=== PATIENT | male | born 1950 | race Caucasian/White ===

== ENCOUNTER 2021-10-31 08:06 | Outpatient (CLI) | payer OTHER, SELFPAY | END 2021-10-31 08:07 | disposition home or self-care (01) | PROVIDERS: PCP Family Medicine; Visit Provider Nurse Practitioner Family | DX: I83.012 Varicose veins of right lower extremity with ulcer of calf (principal); L97.212 Non-pressure chronic ulcer of right calf with fat layer exposed; I89.0 Lymphedema, not elsewhere classified; E66.9 Obesity, unspecified | CPT/HCPCS: 11042; 11104; 87070; 87186; 88305; 99213 ==

== ENCOUNTER 2021-11-07 10:37 | Outpatient (CLI) | payer OTHER, SELFPAY | END 2021-11-07 10:38 | disposition home or self-care (01) | LOC: WOUND 10:37 | PROVIDERS: PCP Family Medicine; Visit Provider Nurse Practitioner Family | DX: I87.311 Chronic venous hypertension (idiopathic) with ulcer of right lower extremity (principal); L97.812 Non-pressure chronic ulcer of other part of right lower leg with fat layer exposed | CPT/HCPCS: 11042 ==

== ENCOUNTER 2021-11-14 10:04 | Outpatient (CLI) | payer OTHER, SELFPAY | END 2021-11-14 10:05 | disposition home or self-care (01) | PROVIDERS: PCP Family Medicine; Visit Provider Nurse Practitioner Family | DX: I87.311 Chronic venous hypertension (idiopathic) with ulcer of right lower extremity (principal); L97.812 Non-pressure chronic ulcer of other part of right lower leg with fat layer exposed | CPT/HCPCS: 11042 ==

== ENCOUNTER 2021-11-21 12:46 | Outpatient (CLI) | payer OTHER, SELFPAY | END 2021-11-21 12:47 | disposition home or self-care (01) | LOC: WOUND 12:46 | PROVIDERS: PCP Family Medicine; Visit Provider Nurse Practitioner Family | DX: I87.311 Chronic venous hypertension (idiopathic) with ulcer of right lower extremity (principal); L97.812 Non-pressure chronic ulcer of other part of right lower leg with fat layer exposed; I89.0 Lymphedema, not elsewhere classified | CPT/HCPCS: 11042 ==

== ENCOUNTER 2021-11-28 09:54 | Outpatient (CLI) | payer OTHER, SELFPAY | END 2021-11-28 09:55 | disposition home or self-care (01) | LOC: WOUND 09:54 | PROVIDERS: PCP Family Medicine; Visit Provider Nurse Practitioner Family | DX: I87.311 Chronic venous hypertension (idiopathic) with ulcer of right lower extremity (principal); L97.812 Non-pressure chronic ulcer of other part of right lower leg with fat layer exposed | CPT/HCPCS: 97597 ==

== ENCOUNTER 2021-12-05 09:44 | Outpatient (CLI) | payer OTHER, SELFPAY | END 2021-12-05 09:45 | disposition home or self-care (01) | LOC: WOUND 09:44 | PROVIDERS: PCP Family Medicine; Visit Provider Nurse Practitioner Family | DX: I87.311 Chronic venous hypertension (idiopathic) with ulcer of right lower extremity (principal); L97.812 Non-pressure chronic ulcer of other part of right lower leg with fat layer exposed | CPT/HCPCS: 97597 ==

== ENCOUNTER 2021-12-13 09:50 | Outpatient (CLI) | payer OTHER, SELFPAY | END 2021-12-13 09:51 | disposition home or self-care (01) | LOC: WOUND 09:50 | PROVIDERS: PCP Family Medicine; Visit Provider Nurse Practitioner Family | DX: I83.018 Varicose veins of right lower extremity with ulcer other part of lower leg (principal); L97.812 Non-pressure chronic ulcer of other part of right lower leg with fat layer exposed | CPT/HCPCS: 99212 ==

== ENCOUNTER 2021-12-19 10:39 | Outpatient (CLI) | payer OTHER, SELFPAY | END 2021-12-19 10:40 | disposition home or self-care (01) | LOC: WOUND 10:40 | PROVIDERS: PCP Family Medicine; Visit Provider Nurse Practitioner Family | DX: I87.311 Chronic venous hypertension (idiopathic) with ulcer of right lower extremity (principal); L97.212 Non-pressure chronic ulcer of right calf with fat layer exposed; I89.0 Lymphedema, not elsewhere classified | CPT/HCPCS: 97597 ==

== ENCOUNTER 2021-12-26 08:03 | Outpatient (CLI) | payer OTHER, SELFPAY ==
--- NOTE | 2021-12-26 08:15 | CRLHL7_ITS ---
For Patients: As a result of the Cures Act, medical imaging exams and procedure reports are released immediately into your electronic medical record. You may view this report before your referring provider. If you have questions, please contact your health care provider. HISTORY: Right hurd wound. TECHNIQUE: MRI right lower leg/tibia fibula. COMPARISON: No prior. FINDINGS: There is a soft tissue wound involving the anterior aspect of the right mid lower leg. There is no underlying fluid collection. No osteomyelitis. No deep muscle or fascial plane infection. Subcutaneous varicosities are present. IMPRESSION: 1. Soft tissue wound involving the anterior right lower leg. 2. No associated fluid collection, osteomyelitis or deep soft tissue infection. Dictated by Tuan Frias MD @ 12/26/2021 12:50:44 PM (Electronically Signed)
== END 2021-12-26 08:04 | disposition home or self-care (01) ==
PROVIDERS: PCP Family Medicine; Visit Provider Nurse Practitioner Family
DX: L97.919 Non-pressure chronic ulcer of unspecified part of right lower leg with unspecified severity (principal)
CPT/HCPCS: 73718; 97597; A9575

== ENCOUNTER 2022-01-02 09:45 | Outpatient (CLI) | payer OTHER, SELFPAY | END 2022-01-02 09:46 | disposition home or self-care (01) | LOC: WOUND 09:45 | PROVIDERS: PCP Family Medicine; Visit Provider Nurse Practitioner Family | DX: I87.311 Chronic venous hypertension (idiopathic) with ulcer of right lower extremity (principal); L97.212 Non-pressure chronic ulcer of right calf with fat layer exposed | CPT/HCPCS: 99212 ==

== ENCOUNTER 2022-03-29 16:29 | Outpatient (CLI) | payer OTHER, SELFPAY ==
[2022-03-29 09:49] LABS: Albumin* 4.8 g/dL (3.3-5.0); Chloride* 100 mmol/L (96-114)
[2022-03-29 09:50] LABS: Potassium* 4.1 mmol/L (3.6-5.1); Sodium* 140 mmol/L (135-149)
[2022-03-29 09:52] LABS: Aspartate Amino Transferase* 35 U/L (12-35); Bilirubin Total* 0.7 mg/dL (0.1-1.5); Blood Urea Nitrogen* 20 mg/dL (7-30); Carbon Dioxide* 33 mmol/L (20-32); Cholesterol* 160 mg/dL (90-199); Estimated Glomerular Filt Rate 81 ml/min; Glucose* 99 mg/dL (60-115); Total Protein* 7.2 g/dL (6.0-8.3)
[2022-03-29 09:53] LABS: Alanine Aminotransferase* 36 U/L (4-50); Alkaline Phosphatase* 61 U/L (40-150); Calcium* 9.4 mg/dL (8.4-10.6); HDL Cholesterol* 46 mg/dL (>=40); LDL Cholesterol Calculated 81 mg/dL (<100); Triglycerides* 164 mg/dL (40-149)
[2022-03-29 10:21] LABS: PSA Screen* 0.25 ng/mL (0.10-4.00)
== END 2022-03-29 16:30 | disposition home or self-care (01) ==
PROVIDERS: PCP Family Medicine; Visit Provider Family Medicine
DX: E78.5 Hyperlipidemia, unspecified (principal); M10.9 Gout, unspecified; Z12.5 Encounter for screening for malignant neoplasm of prostate; G62.9 Polyneuropathy, unspecified; R60.9 Edema, unspecified; Z79.899 Other long term (current) drug therapy
CPT/HCPCS: 80053; 80061; 84153

== ENCOUNTER 2022-06-13 09:52 | Outpatient (CLI) | payer OTHER, SELFPAY | END 2022-06-13 09:53 | disposition home or self-care (01) | LOC: INJ CL 09:53 | PROVIDERS: PCP Family Medicine; Visit Provider Family Medicine | DX: M54.16 Radiculopathy, lumbar region (principal); M51.36 Other intervertebral disc degeneration, lumbar region | CPT/HCPCS: 62323; J0702; Q9966 ==

== ENCOUNTER 2022-08-02 08:38 | Outpatient (CLI) | payer OTHER, SELFPAY | END 2022-08-02 08:39 | disposition home or self-care (01) | LOC: NFLDREF 08:40 | PROVIDERS: PCP Family Medicine; Visit Provider Family Medicine | DX: E78.5 Hyperlipidemia, unspecified (principal); Z79.1 Long term (current) use of non-steroidal anti-inflammatories (NSAID); Z79.899 Other long term (current) drug therapy | CPT/HCPCS: 80053 ==

== ENCOUNTER 2023-01-29 07:30 | Outpatient (CLI) | payer OTHER, SELFPAY | END 2023-01-29 07:31 | disposition home or self-care (01) | LOC: NFLDREF 01-31 15:18 | PROVIDERS: PCP Family Medicine; Referring Provider Family Medicine; Visit Provider Family Medicine | DX: E78.5 Hyperlipidemia, unspecified (principal); D64.9 Anemia, unspecified; Z79.1 Long term (current) use of non-steroidal anti-inflammatories (NSAID) | CPT/HCPCS: 80053; 80061 ==

== ENCOUNTER 2023-03-28 07:36 | Outpatient (CLI) | payer OTHER, SELFPAY | END 2023-03-28 07:37 | disposition home or self-care (01) | LOC: NFLDREF 12:05 | PROVIDERS: PCP Family Medicine; Referring Provider Family Medicine; Visit Provider Family Medicine | DX: D64.9 Anemia, unspecified (principal); G62.9 Polyneuropathy, unspecified; E66.9 Obesity, unspecified; R73.9 Hyperglycemia, unspecified; E78.5 Hyperlipidemia, unspecified; E11.9 Type 2 diabetes mellitus without complications; Z79.899 Other long term (current) drug therapy | CPT/HCPCS: 80053; 82607; 82728; 84153 ==

== ENCOUNTER 2023-07-10 09:11 | Outpatient (CLI) | payer OTHER, SELFPAY | END 2023-07-10 09:12 | disposition home or self-care (01) | LOC: NFLDREF 09:12 | PROVIDERS: PCP Family Medicine; Visit Provider Family Medicine | DX: R73.03 Prediabetes (principal); R60.0 Localized edema | CPT/HCPCS: 80048 ==

== ENCOUNTER 2023-07-23 06:12 | Day surgery (SDC) | payer OTHER, SELFPAY ==
[2023-07-23] VITALS (24 sets, daily range): BP systolic 104–153; BP diastolic 56–94; PULSE 63–100; RESP 10–18; TEMP 36.1–37; O2SAT 91–100; BMI 37.6
[2023-07-23] MEDS: MIDAZOLAM HCL 1 MG/ML inj IVP (06:05)
[2023-07-23] MEDS: LACTATED RINGERS 1000 ML 1,000 ML 100 ML IV ×2 (06:05→09:33)
[2023-07-23] MEDS: ACETAMINOPHEN 500 MG TABLET 1000 MG PO ×3 (06:05→18:12)
[2023-07-23] MEDS: OXYCODONE (CR) 10 MG TAB.ER.12H PO (06:05)
[2023-07-23] MEDS: fentaNYL 100 MCG/2 ML inj IVP (06:05)
--- OUTSIDE RECORDS SUMMARY | 2023-07-23 06:14 | XMS_ITS | Clinical Summary ---
Author Name Unknown Organization [facility] Address [place], [place] [address] Care Team Providers Care Ladderman Name Role Phone Grace Dash MD Primary Care Provider + Allergies Active Allergy Reactions Criticality Noted Date Comments Adhesive Tape-Silicones Hives 01/24/2017 coban tape Bupropion Psychosis,Hallucinat i ons 09/02/2018 Codeine Rash 12/14/2016 Doxycycline Rash 07/10/2022 Gabapentin Psychosis,Myalgia,Ra s h High 03/29/2017 Other reaction(s): Psychosis Lorazepam Other - Describe In Comment Field,*Unknown - Childhood Rxn 12/14/2016 Paradoxal Effect Meperidine Other - Describe In Comment Field Medium 06/13/2017 Leaves knot in tissue Unlisted Allergen (Include Detail In Comments) Contact Dermatitis 09/02/2018 COBAN Medications Medication Sig Dispensed Refills Start Date End Date Status ascorbic acid, vitamin C, (VITAMIN C) 1,000 mg tabletIndications: vitamin c supplement Take 1,000 mg by mouth once daily. Indications: vitamin c supplement 01/24/2017 Active famotidine (PEPCID) 40 mg tabletIndications: gastroesophageal reflux disease Take 40 mg by mouth once daily. Indications: gastroesophageal reflux disease 06/20/2018 Active furosemide (LASIX) 40 mg tabletIndications: fluid retention Take 40 mg by mouth once daily. Indications: fluid retention 07/22/2018 Active methylphenidate HCl (RITALIN) 20 mg tabletIndications: attention-deficit hyperactivity disorder Take 20 mg by mouth 2 times daily if needed Indications: Attention Deficit Disorder with Hyperactivity 0 07/26/2018 Active LYRICA 300 mg capsule Take 300 mg by mouth 2 times daily. 3 07/23/2018 Active tamsulosin (FLOMAX) 0.4 mg capsule Take 0.4 mg by mouth at bedtime. 07/22/2018 Active VITAMIN B COMPLEX ORALIndications:vi tamin b supplement Take 1 capsule by mouth once daily. Indications: vitamin b supplement Active ferrous sulfate, 65 mg elemental, 324 mg (65 mg iron) Delayed-Release tabletIndications: iron deficiency anemia Take 1 tablet by mouth once daily. Indications: anemia from inadequate iron 01/24/2017 Active acetaminophen SR (TYLENOL ARTHRITIS) 650 mg Extended-Release tablet Take 1,300 mg by mouth every 8 hours if needed (pain). Active allopurinol (ZYLOPRIM) 300 mg tabletIndications: Gout, unspecified cause, unspecified chronicity, unspecified site Take 1 tablet by mouth once daily. DO NOT TAKE UNTIL INSTRUCTED BY PRIMARY MD 0 09/14/2018 Active traMADol (ULTRAM) 50 mg tablet Take 2 tablets by mouth 2 times daily. 120 tablet 5 10/09/2018 Active Additional Information Patient taking differently:100 mg OralBID PRN, Informant: Patient's Recall, Reported on 01/09/2019 multivitamin (MVI) tabletIndications: vitamin deficiency prevention Take 1 tablet by mouth once daily. Indications: Treatment To Prevent Vitamin Deficiency Active citalopram (CELEXA) 20 mg tablet 01/18/2022 Active rosuvastatin (CRESTOR) 5 mg tablet 12/06/2021 Active spironolactone (ALDACTONE) 100 mg tablet 12/10/2021 Active Active Problems Problem Noted Date Diagnosed Date Hip pain, left 09/07/2022 Overview: August 2022: Ultrasound guided left hip joint injection by Dr. Vela. 60% relief for groin pain and walking better. March 2023: Ultrasound guided left hip joint injection by Dr. Vela. Obesity, morbid 07/10/2022 Hip pain, right 05/06/2022 Overview: April 2022: Right hip ultrasound guided intraarticular joint injection: Reported 0 lidocaine benefit and no steroid benefit. ~ June 2022: L3-L4 IL epidural steroid injection by Dr. Vela: Significantly improved low back, buttock pain and only mild/minor improvement in groin pain. September 2022: Right hip joint ultrasound guided intraarticular joint injection, 90% relief of pain walking at 15 mins. Fever of unknown origin 09/15/2018 History of temporal artery biopsy 09/13/2018 Depression 09/02/2018 Gout 09/02/2018 Hyperlipidemia 09/02/2018 Narcolepsy 09/02/2018 GERD (gastroesophageal reflux disease) 9 Macrocytic anemia 09/02/2018 BPH (benign prostatic hyperplasia) 09/02/2018 TORY (obstructive sleep apnea) 09/02/2018 Edema of both lower extremities 09/02/2018 Overview: Chronic Chronic back pain 09/02/2018 Acute epididymitis 09/02/2018 Bilateral headaches Encounters Date Type Department Care Team Description 07/10/2023 Telephone [facility] [address] [place] [address] Paco Vela MD Questions 06/22/2023 Telephone [facility] [address] [place] [address] Marbin De La Cruz MD Appointment from Last 3 Months Immunizations Name Administration Dates Next Due COVID-19 vaccine ([facility] 30mcg/0.3mL) ROSA CONNOR 11/01/2021,04/28/2021,07/06/2020,2020 Influenza, High-dose Inactivated 12/24/2018,12/09 Influenza, High-dose Quadriv alent Inactivated 01/31/2023,04/07/2022,02/16/2021,2019 Pneumococcal Poly,23-Valent (Pneumovax) 03/23/2020 Pneumococcal conj 13-Valent (Prevnar 13) 07/10/2018 Tdap 01/31/2023,09/22/2011,04/05/2009 Family History Medical History Relation Name Comments Stroke Father Diabetes Mother Kidney disease Mother Narcolepsy Mother Sleep apnea Mother Relation Name Status Comments Father Mother Social History Tobacco Use Types Packs/Day Years Used Date Smoking Tobacco: Never Smokeless Tobacco: Former Chew Tobacco Cessation:Counseling Given: Yes Alcohol Use Standard Drinks/Week Comments Not Currently 0 (1 standard drink = 0.6 oz pur e alcohol) no use since 2007 Social Connections Answer Date Recorded Frequency of Communication with Friends and Fami ly Not on file 03/14/2022 Sex and Gender Information Value Date Recorded Sex Assigned at Not on file Gender Identity Not on file Sexual Orientation Not on file Obstetrics History Last Filed Vital Signs Vital Sign Reading Time Taken Comments Blood Pressure 145/76 03/23/2023 7:34 AM ROCKET ENGINE TESTER Pulse 54 03/23/2023 7:34 AM ROCKET ENGINE TESTER Temperature 36.6 ??C (97.8 ??F) 11/24/2022 8:38 AM CD T Respiratory Rate 16 02/17/2019 11:3 0 AM ROCKET ENGINE TESTER Oxygen Saturation 96% 03/23/2023 7:34 AM ROCKET ENGINE TESTER Inhaled Oxygen Concentration - - Weight 109.7 kg (241 lb 12.8 oz) 03/23/2023 7:34 AM ROCKET ENGINE TESTER Height 165.1 cm (5' 5) 07/10/2022 7:04 AM CDT Body Mass Index 40.24 07/10/2022 7:04 AM CDT Plan of Treatment Upcoming Encounters Date Type Department Care Team (Late st Contact Info) Description 08/22/2023 7:20 AM CDT Procedure Only [facility] [address] [place] [address] Paco Vela MD [address] [place] [address] Health Maintenance Due Date Last Done Comments Depression screening for age 12+ 1964 Hepatitis C screening for ag e 18-79 1970 Lipids for age 45-75 1997 Zoster (shingles) series for age 50+ (1 of 2) 2002 Medicare Wellness for age 65+ 2017 BMI (ht and wt on same day) for age 18+ 07/11/2023 07/10/2022 Influenza for age 65+ 12/09/2023 01/31/2023 , 04/07/2022, 02/16/2021, Additional history exists Colonoscopy through age 75 02/17/2029 02/17/2019 Tetanus booster 01/31/2033 01/31/2023, 09/07, 04/05/2009 Pneumococcal series for age 65+ Completed 0, 07/10/2018 COVID-19 vaccine series Completed 02/01/20 23, 11/01/2021, 04/28/2021, Additional history exists Tdap Completed 01/31/2023, 09/07, 04/05/2009 Procedures Procedure Name Priority Date/Time Associated Diagnosis Comments COLONOSCOPY 02/17/2019 9:37 AM ROCKET ENGINE TESTER from Last 3 Months or Most Recently Relevant to Health Maintenance Results * COLONOSCOPY (02/17/2019 9:37 AM ROCKET ENGINE TESTER) 02/17/2019 9:37 AM ROCKET ENGINE TESTER Narrative Transcriptions Enoc Hansen MD - 02/17/2019 10:42 AM CST Patient Name: Pierre Strickland Procedure Date: 02/17/2019 Gender: Male Date of : 1950 Admit Type: Ambulatory Procedure: Colonoscopy Proceduralist: Horace Hansen [facility] Indications/Pre-Op Diagnosis: Screening for colorectal malignantneoplasm Medications: Propofol per Anesthesia Procedure Description: The patient had risks, benefits and alternatives explained to andgave informed consent. The patient had a stable cardiopulmonary status and judged an adequate candidate for conscious sedation. The colonoscope was passed through the anus and advanced to thececum, identified by appendiceal orifice and ileocecal valve. Thecolonoscopy was performed without difficulty. The patient tolerated the procedure well. The quality of the bowel preparation was evaluated using theBBPS (R[place] Bowel Preparation Scale) with scores of: Right Colon = 2(minor amount of residual staining, small fragments of stool and/or opaque liquid, but mucosa seen well), Transverse Colon = 3 (entire mucosaseen well with no residual staining, small fragments of stool or opaque liquid) and Left Colon = 3 (entire mucosa seen well with no residual staining, small fragments of stool or opaque liquid). The total BBPS score equals 8. Complications: No immediate complications. Estimated Blood Loss & Specimen: Estimated blood loss: none. Specimen collected - Yes and sent to Laboratory Findings: The perianal and digital rectal examinations were normal. There was a medium-sized lipoma, in the sigmoid colon. The polyp was removed with a hot snare. Resection and retrieval were complete. A few medium-mouthed diverticula were found in the entire colon. The exam was otherwise without abnormality. Biopsies for histology were taken with a cold forceps from the right colon and left colon for evaluation of microscopic colitis. Impressions/Post-Op Diagnosis: - Medium-sized lipoma in the sigmoid colon. - Diverticulosis in the entire examined colon. - The examination was otherwise normal. - Biopsies were taken with a cold forceps from the right colon andleft colon for evaluation of microscopic colitis. Recommendation: - Telephone my office for pathology results in 1 week. Moderate Sedation: Moderate (conscious) sedation was personally administered by an anesthesia professional. The following parameters were monitored:oxygen saturation, heart rate, blood pressure, and response to care. Horace Hansen, 02/17/2019 10:42:34 AM This report has been signed electronically. Note Initiated On: 02/17/2019 9:37 AM Enoc Hansen MD PROCEDURE ORD from Last 3 Months or Most Recently Relevant to Health Maintenance Additional Health Concerns Infection Onset Date Last Indicated C diff History Comment:+C diff test 12/26/2018. Enteric Precautions not required on subsequent admissions provided: 1) >3 weeks since positive D diff test; 2) diarrhea resolved; and 3) patient has completed CDI antibiotics. C diff testing not required on subsequent admissions unless patient is presenting with C diff symptoms. 01/09/2019 01/09/2019 Advance Directives * Full Code (Latest Code Status on File) Date Activated Date Inactivated Comments 02/17/2019 7:32 AM 02/17/2019 6:47 PM * Full Code Date Activated Date Inactivated Comments 09/02/2018 1:13 PM 09/14/2018 4:26 PM Care Teams Ladderman Relationship Specialty Start Date End Date Grace Dash MD [address] [place] [address] PCP - General Family Practice 08/31/22
[2023-07-23] MEDS: SODIUM CHLORIDE 0.9 % (FLUSH) 10 ML SYRINGE IVF (07:09)
--- NOTE | 2023-07-23 07:10 | XR_ITS ---
Patient: JOSE BRENNAN Facility:?[facility] Patient ID:?[id number] Site Patient ID:?[id number]. Site :?1950 Study:?XRay-Hip Right 2 VIEW POSTOP-07/23/2023 11:18:59 AM Ordering Physician:NAVARRO Final Report: Indication: Postop Technique: AP hip centered pelvis and lateral view right hip Findings/Impression: Hardware from a right total hip arthroplasty is in satisfactory position. Bone alignment is normal. No sign of acute fracture. Postop changes are within normal limits. Dictated by Ford Clayton MD @ 07/23/2023 11:40:27 AM Signed by:?Ford Clayton MD @07/23/2023 11:40:27 AM (Electronic Signature)
--- NOTE | 2023-07-23 07:27 | W.PM.H&PU ---
History & Physical Update History & Physical Update H&P Reviewed and patient assessed: No changes noted
--- NOTE | 2023-07-23 07:30 | XR_ITS ---
Patient: JOSE BRENNAN Facility:?[facility] Patient ID:?[id number] Site Patient ID:?[id number]. Site :?1950 Study:?XRay-Hip Right W/ C-ARM-07/23/2023 9:54:04 AM Ordering Physician:?Lv Kennedy Final Report: Indication: Hip replacement surgery Technique: AP hip fluoroscopic image. Fluoroscopy time 58.2 seconds. Findings/Impression: Hardware from a right total hip arthroplasty is in satisfactory position. Dictated by Ford Clayton MD @ 07/23/2023 10:06:50 AM Signed by:?Ford Clayton MD @07/23/2023 10:06:50 AM (Electronic Signature)
--- NOTE | 2023-07-23 07:39 | SUR.PREOP ---
TIME?OUT:?0735 PT/RN/ALETA?VERIFICATION?OF?SURGICAL?SITE,?PROCEDURE,?AND?CONSENT OBTAINED?PRIOR?TO?INVASIVE?PROCEDURE.right hip r daryl singer mda
[2023-07-23] MEDS: TRANEXAMIC ACID 100 MG/ML INJ 1000 MG IV (08:13)
[2023-07-23] MEDS: CEFAZOLIN 2 GM in 0.9 % SODIUM CHLORIDE Mini-bag 100 ML IVPB ×3 (08:13→23:10)
--- NOTE | 2023-07-23 09:29 | W.PM.NB ---
Nerve Block Nerve Block Time Seen by Provider: 07:34 Date Seen: 07/23/23 Type of block requested by surgeon for post-operative analgesia: GEORGE/LFCN Side: right Time out performed: Yes Verification of patient name: Yes Verification of date of : Yes Site marking: site marked Name of person performing procedure: Max Continuous monitoring Was continuous monitoring of O2 sat, B/P, couture dressmaker, recorded every 15 minutes?: Yes Procedure Checklist: sterile prep, needles and gloves Ultrasound guided. Images saved: Yes Medications given in 5ml increments after negative aspiration: Ropivicaine %: 0.5 mL: 30 Needle gauge: 20 Decadron (mg): 10 Precedex (mcg): 25 Patient tolerated procedure well: Yes Additional comments: Needle noted below psoas tendon needle noted adjacent to LFCN Block Charges Block Charge (with Pro Fee): Other Periph Nerve Block Use of Ultrasound Machine for Block: Yes- US Guidance/pain block
--- NOTE | 2023-07-23 09:43 | PM.ORPRC ---
Procedure Note Date of procedure: 07/23/23 Procedure: PREOPERATIVE DIAGNOSIS: 1. Right hip osteoarthritis, severe, primary POSTOPERATIVE DIAGNOSIS: 1. Right hip osteoarthritis, severe, primary PROCEDURE: 1. Right total hip arthroplasty-anterior approach 2. [id number] - intraoperative fluoroscopy up to 1 hour. SURGEON: Lv Kennedy MD. MONOMER RECOVERY SUPERVISOR: Cole Adair PA-C; ARTURO Martinez - Of note, a skilled public services assistant was critical for this case to aid in patient positioning, tissue retraction, limb manipulation/positioning, dislocation/relocation, patient safety, and closure. ANESTHESIA: General endotracheal anesthetic EBL: 650 mL IMPLANTS: DePuy J&J uncemented total hip [place] cup size 50, hole eliminator, +0 neutral liner Actis stem, standard offset, size 5 +1 mm ceramic 32mm head. COMPLICATIONS: None evident INDICATIONS: The patient is a pleasant 72-year-old who has experienced severe right hip pain and difficulty bearing weight. Workup included x-rays which revealed severe osteoarthrosis in the hip. Given the deformity, the dysfunction, and the pain, as well as the failure of nonoperative management, recommendation was made for surgery. FINDINGS: Full-thickness chondral loss diffusely throughout the femoral head as well as acetabulum. Osteophytes around the femoral head/neck junction and acetabulum. Moderate effusion upon entering the joint. Significant synovitis upon entering joint. DESCRIPTION OF PROCEDURE: Following a thorough discussion of risks, benefits, and alternatives consent was obtained and the right hip was marked. The patient was brought to the operating room and placed supine on the operating table. Induction of anesthesia was undertaken. 2 g IV Ancef and 1 g tranexamic acid was administered within 1 hr of incision preoperatively. Proper time-out was performed identifying proper patient, site, procedure. The operative extremity was prepped and draped in the appropriate sterile fashion using ChloraPrep after the patient was positioned on the Page table with head in neutral alignment and all bony prominences well padded. C-arm fluoroscopic imaging was utilized to confirm proper pelvis rotation and position, and to get true AP films of both the contralateral left, and the affected left hip. This is for comparison. A longitudinal incision was made starting approximately 1 cm distal to the ASIS, and 3-4 cm lateral. The incision was extended distally aiming toward the lateral border the patella. Sharp incision through skin and bovie cautery through the subcutaneous tissue allowed identification of the TFL fascia. This was sharply divided, and the fascia bluntly released from the muscle fibers as we dissected medial. Upon coming to the medial border, we were able to retract the TFL laterally, and penetrated the deeper fascia and identify the crossing circumflex vessels. These were ligated/cauterized. The rectus was elevated from the capsule, and retractors placed laterally and medially along the femoral neck to help with visualization of the capsule. We then performed an inverted T capsulotomy. The capsule was tagged for later repair. Retractors were placed inside the capsule. The femoral neck was visualized after releasing medially down to the lesser trochanter, along the saddle laterally, and up onto the acetabulum. The femoral neck cut was made in line with our preoperative templating. The head was removed in a single piece, and sized. We turned our attention to acetabular preparation. Initially, the labrum was resected from around the perimeter, the pulvinar was excised, allowing us to visualize the false wall. We started the reaming with a 43 mm reamer. This was medialized down to the true wall. We then enlarged our reamers sequentially up to one size less than the selected cup size. We trialed at the same size and found it to have an excellent fit. The selected cup was then opened, inserted, and impacted in line with the goal of 40-45? of abduction, and 20-25? of anteversion. This was confirmed on C-arm fluoroscopic imaging to be in the appropriate/goal position. Once the cup was placed we placed a hole eliminator and a liner consistent with preop planning. Attention was turned to the femoral preparation. The limb was extended, externally rotated, and adducted. The posteromedial capsule was released, as retractors were placed allowing excellent access to the proximal femur. Initially a journal box inspector was followed by canal finder followed by various broaches. We broached sequentially up to size noted above, found it to have excellent rotational control, and trialing various heads and necks, revealed that appropriate neck offset, and the above noted head size provided the greatest stability, and latter day of length, and offset. C-arm fluoroscopic imaging confirmed position of the stem, as well as leg lengths, which were compared with the pre procedure all fluoroscopic images. Trial implants were removed, the real femoral stem inserted, as was the ceramic head. After reducing, the leg was placed through range of motion and stability was confirmed anterior, posterior, and lateral. A 3 min Betadine soak was then performed, and thorough irrigation with normal saline followed. Closure of the capsule was performed with #1 PDS. Bleeding was confirmed to be controlled at this stage, and the TFL fascia was closed with #0 strata fix. Subcutaneous, and subcuticular closure was performed with 2-0 Vicryl and 4-0 Monocryl, respectively. Dressings were applied, and the patient was awoken from anesthesia and transferred the PACU in stable condition. A skilled public services assistant was critical for this case to aid in patient positioning, tissue retraction, proximal femur exposure, limb manipulation/positioning, dislocation/relocation, patient safety, and closure. PLAN: 1. Weight bear as tolerated operative extremity. 2. 23 hr perioperative antibiotics. 3. Ice. 4. PT/OT consults for ambulation assistance/mobility education. 5. Social work consult for discharge planning. 6. DVT prophylaxis with at SCDs and Xarelto x5 days followed by aspirin for a total of 1 month..
--- NOTE | 2023-07-23 10:46 | W.ANESCHARGE ---
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
[2023-07-23] MEDS: fentaNYL 100 MCG/2 ML inj 50 MCG IVP ×2 (10:50→11:05)
[2023-07-23] MEDS: HYDROmorphone 0.5 mg/0.5 ml inj IVP ×2 (11:20→12:07)
[2023-07-23] MEDS: LACTATED RINGERS 1000 ML 1,000 ML 75 ML IV (11:41)
--- NOTE | 2023-07-23 11:48 | W.ANESCHARGE ---
Anesthesia Charges Start Date/Time Anesthesia Start Date: 07/23/23 Anesthesia Start Time: 07:41 Stop Date/Time Anesthesia Stop Date: 07/23/23 Anesthesia Stop Time: 10:42 Summary Extremes of Age - Over 70 or under 1: MDA
--- NOTE | 2023-07-23 14:52 | PC.NURSE ---
End of Shift note [id number]: Patient arrived to unit at 1145 post-operatively. Post-op vitals obtained per order and patient has been vitally stable. IV Dilaudid given for acute R) hip pain. Pain improved and patient rested after administration. PT and RN assisted patient to ambulate in room and patient up to chair with walker/gait belt. Patient tolerated activity well. Patient tolerating clear liquid diet well; patient's diet advanced and patient ordering food. Will continue to implement plan of care.
--- NOTE | 2023-07-23 15:35 | PM.IMCN1 ---
Date of Consult Patient: [facility] Patient Consult date: 07/23/23 Requesting Physician: Orthopedics Primary Care Provider: Grace Dash MD Consult Narrative Reason for consult: Medical management of comorbidities Narrative: Pierre Strickland is a 72 year old male who presented to the hospital today for an elective right PIYUSH with Dr. Kennedy of Orthopedic Surgery. There were no surgical or anesthetic complications noted during procedure. He has had multiple joint replacements. Patient's H&P reviewed, PCP is Dr. Dash. Past medical history significant for: Narcolepsy, Neuropathy, GERD, depression, TORY (not on CPAP), Hyperlipidemia. History of blood clots: No Postoperative plan: Home with Patient and have no concerns for hospitalist team today. Review of Systems Status of ROS: Reports: 10 or more systems reviewed and unremarkable except as noted in History and below [facility] Medical History (Updated 07/10/23 @ 09:04 by Grace Dash MD) Osteoarthritis of right hip ?M16.11 - Unilateral primary osteoarthritis, right hip (ICD-10) Osteoarthritis of left hip ?M16.12 - Unilateral primary osteoarthritis, left hip (ICD-10) Osteoarthritis of right foot ?M19.071 - Primary osteoarthritis, right ankle and foot (ICD-10) Hx MRSA infection ?Z86.14 - Personal history of Methicillin resistant Staphylococcus aureus infection (ICD-10) Hip osteomyelitis, right ?M86.9 - Osteomyelitis, unspecified (ICD-10) Melanoma (03/2022) ?C43.9 - Malignant melanoma of skin, unspecified (ICD-10) Ulcer of right lower leg ?L97.919 - Non-pressure chronic ulcer of unspecified part of right lower leg with unspecified severity (ICD-10) Wound cellulitis ?L03.90 - Cellulitis, unspecified (ICD-10) Steatosis of liver ?K76.0 - Fatty (change of) liver, not elsewhere classified (ICD-10) Peripheral edema ?R60.9 - Edema, unspecified (ICD-10) Osteoarthritis ?M19.90 - Unspecified osteoarthritis, unspecified site (ICD-10) Obstructive sleep apnea syndrome ?G47.33 - Obstructive sleep apnea (adult) (pediatric) (ICD-10) Neuropathy ?G62.9 - Polyneuropathy, unspecified (ICD-10) Memory impairment (2015) ?R41.3 - Other amnesia (ICD-10) nursing home current use of diuretic ?Z79.899 - Other termite control representative (current) drug therapy (ICD-10) Incomplete right bundle branch block (RBBB) (2020) ?I45.10 - Unspecified right bundle-branch block (ICD-10) Hypercalcemia (10/2019) ?E83.52 - Hypercalcemia (ICD-10) History of Clostridioides difficile infection (12/26/18) ?Z86.19 - Personal history of other infectious and parasitic diseases (ICD-10) Hemorrhagic diathesis ?D69.9 - Hemorrhagic condition, unspecified (ICD-10) Fever of unknown origin (08/30/18) ?R50.9 - Fever, unspecified (ICD-10) Epididymitis ?N45.1 - Epididymitis (ICD-10) Depression ?F32.A - Depression, unspecified (ICD-10) Constipation ?K59.00 - Constipation, unspecified (ICD-10) Chronic pain ?G89.29 - Other chronic pain (ICD-10) Chronic daily headache (2017) ?R51.9 - Headache, unspecified (ICD-10) Basal cell carcinoma (BCC) (2014) ?C44.91 - Basal cell carcinoma of skin, unspecified (ICD-10) Adrenal nodule ?E27.8 - Other specified disorders of adrenal gland (ICD-10) Surgical History (Updated 07/23/23 @ 16:09 by Cristiana Dumont MD) History of Mohs micrographic surgery for skin cancer ?Z85.828 - Personal history of other malignant neoplasm of skin (ICD-10) ?Z98.890 - Other specified postprocedural states (ICD-10) History of arthroscopy of right knee ?Z98.890 - Other specified postprocedural states (ICD-10) History of tonsillectomy ?Z90.89 - Acquired absence of other organs (ICD-10) S/P left knee arthroscopy ?Z98.890 - Other specified postprocedural states (ICD-10) S/P ORIF (open reduction internal fixation) fracture ?Z98.890 - Other specified postprocedural states (ICD-10) ?Z87.81 - Personal history of (healed) traumatic fracture (ICD-10) History of hemiarthroplasty of left shoulder (10/22/14) ?Z96.612 - Presence of left artificial shoulder joint (ICD-10) Status post epidural steroid injection (06/2022) ?Z92.241 - Personal history of systemic steroid therapy (ICD-10) History of lumbosacral spine surgery (03/10/15) ?Z98.890 - Other specified postprocedural states (ICD-10) History of bilateral knee replacement (2008) ?Z96.653 - Presence of artificial knee joint, bilateral (ICD-10) History of arthroscopy of both shoulders (2010) ?Z98.890 - Other specified postprocedural states (ICD-10) History of arthroplasty of both wrists (2010) ?Z96.631 - Presence of right artificial wrist joint (ICD-10) ?Z96.632 - Presence of left artificial wrist joint (ICD-10) Family History (Updated 10/27/21 @ 16:53 by Grace Dash MD) Sister Breast cancer, Onset Age: 50 Father Stroke, Onset Age: 72 Mother Diabetes Other Narcolepsy Social History (Updated 03/29/23 @ 14:36 by Mireya Hi ~ CTA) Narrative: , 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, 3 adult kids does not drink alcohol exercise involving walking- 2M dog walking 6/week non-smoker What is your current living situation?: I presently have a place to live Problems where you live: no known problems In the past 12 months, utilities in danger of being shut off: no In past 12 months, lack of transportation kept you from medical appts, meetings, work, or getting things needed for daily living: no In the past 12 mos, have been you worried that your food would run out before you had money to buy more?: never true In the past 12 mos, the food you bought just didn't last and you didn't have money to buy more?: never true Highest level of school completed/degree received: don't know Smoking Status: Never smoker Do you use any of these nicotine containing products: None Second hand tobacco smoke exposure: No How often do you have a drink containing alcohol: never How often do you have six or more drinks on one occasion: Never AUDIT-C Alcohol total score: 0 Non-prescribed substance use: denies use Caffeine: No How often does anyone, including family, friends and others, physically hurt you: never How often does anyone, including family, friends and others, insult or talk down to you: never How often does anyone, including family, friends and others, threaten you with harm: never How often does anyone, including family, friends and others, scream or curse at you: never Little interest or pleasure in doing things: not at all Feeling down, depressed, or hopeless: not at all service: No Meds Home Medications and Allergies Home Medications Medication Instructions Recorded Confirmed Type ascorbic acid (vitamin C) 1,000 mg 1 g PO DAILY 10/26/21 07/23/23 History tablet multivitamin 1 tab PO DAILY 10/26/21 07/23/23 History sennosides 8.6 mg-docusate sodium 1 tab-cap PO DAILY 10/26/21 07/23/23 History 50 mg tablet (Senna-S) citalopram 10 mg tablet 10 mg PO DAILY 07/23/23 07/23/23 History famotidine 20 mg tablet 20 mg PO DAILY 07/23/23 07/23/23 History furosemide 40 mg tablet 40 mg PO DAILY 07/23/23 07/23/23 History rosuvastatin 5 mg tablet 5 mg PO DAILY 07/23/23 07/23/23 History tamsulosin 0.4 mg capsule 0.4 mg PO HS 07/23/23 07/23/23 History vitamin B complex 1 tab PO DAILY 07/23/23 07/23/23 History Allergies Allergy/AdvReac Type Severity Reaction Status Date / Time bupropion Allergy Intermediate Agitated Verified 07/23/23 06:25 fluorouracil [From Efudex] Allergy Intermediate Hives Verified 07/23/23 06:25 gabapentin Allergy Intermediate Agitated Verified 07/10/23 08:31 lorazepam Allergy Intermediate Verified 07/23/23 06:25 meperidine [From Demerol] Allergy Rash Verified 07/23/23 06:25 codeine AdvReac Severe Hallucinati Verified 07/23/23 06:25 ng doxycycline AdvReac Rash Verified 07/23/23 06:25 Exam Narrative: Exam Narrative: GEN: Alert and oriented, sitting up in bed and eating HEENT: EOMIs bilaterally, no scleral icterus CV: RRR, No concerning murmurs R: LCTA bilaterally without concerning wheezing, air movement adequate Ext: wearing bilateral Ricardo hose Skin: No concerning skin lesions or rashes on exposed skin Neuro: No focal deficits on limited exam Psych: Appropriate Const: Vital Signs, click to edit/add: Vital Signs - 24 hr 07/23/23 07:03 07/23/23 10:45 07/23/23 10:50 Temperature 97.5 F L 98.6 F Pulse Rate 63 89 80 Respiratory Rate 18 10 L 12 Blood Pressure 132/64 145/94 H 134/70 Pulse Oximetry 99 91 93 Oxygen Delivery Me thod Room Air Room Air Nasal Cannula Oxygen Flow Rate 4 07/23/23 10:55 07/23/23 11:00 07/23/23 11:05 Temperature Pulse Rate 74 82 76 Respiratory Rate 12 12 12 Blood Pressure 121/74 114/59 L 122/61 Pulse Oximetry 93 100 99 Oxygen Delivery Me thod Nasal Cannula Nasal Cannula Nasal Cannula Oxygen Flow Rate 4 4 4 07/23/23 11:10 07/23/23 11:15 07/23/23 11:20 Temperature 98.3 F Pulse Rate 75 77 77 Respiratory Rate 12 12 12 Blood Pressure 133/65 130/75 108/56 L Pulse Oximetry 94 100 100 Oxygen Delivery Me thod Nasal Cannula Nasal Cannula Nasal Cannula Oxygen Flow Rate 4 4 4 07/23/23 11:25 07/23/23 11:30 07/23/23 11:45 Temperature 97 F L Pulse Rate 74 82 78 Respiratory Rate 12 12 16 Blood Pressure 118/66 115/59 L 129/74 Pulse Oximetry 100 99 100 Oxygen Delivery Me thod Nasal Cannula Nasal Cannula Nasal Cannula Oxygen Flow Rate 4 4 1 07/23/23 12:00 07/23/23 12:15 07/23/23 12:30 Temperature 97.1 F L 97.2 F L 97.0 F L Pulse Rate 79 79 76 Respiratory Rate 16 15 14 Blood Pressure 117/75 117/72 107/62 Pulse Oximetry 94 92 95 Oxygen Delivery Me thod Nasal Cannula Nasal Cannula Nasal Cannula Oxygen Flow Rate 1 1 2 07/23/23 12:45 07/23/23 13:15 07/23/23 13:30 Temperature Pulse Rate 80 82 84 Respiratory Rate Blood Pressure 104/60 111/61 117/76 Pulse Oximetry 96 96 Oxygen Delivery Me thod Nasal Cannula Nasal Cannula Nasal Cannula Oxygen Flow Rate 2 2 2 07/23/23 14:15 Temperature 97.1 F L Pulse Rate 88 Respiratory Rate 18 Blood Pressure 138/66 Pulse Oximetry 96 Oxygen Delivery Me thod Room Air Oxygen Flow Rate Assessment and Plan Assessment and plan (1) Status post right hip replacement: Problem comment: - 07/23/23Serenity Status: Acute Plan - pain management and prophylaxis per orthopedic surgery team - continue home medications for comorbidities - anticipate routine postoperative course
[2023-07-23] MEDS: hydrOXYzine pamoate 25 MG CAPSULE PO (15:56)
[2023-07-23] MEDS: OXYCODONE 5 MG TABLET PO (15:57)
--- NOTE | 2023-07-23 16:42 | PC.NURSE ---
this senior mortgage underwriter in chart to check fluid order to enter into pump.
[2023-07-23] MEDS: HYDROmorphone 2 MG TABLET PO ×2 (19:21→23:10)
[2023-07-23] MEDS: TAMSULOSIN HCL 0.4 MG CAPSULE PO (21:27)
[2023-07-23] MEDS: allopurinoL 300 MG TABLET PO (21:27)
[2023-07-23] MEDS: SENNOSIDES 1 TAB TABLET 2 TAB PO (21:27)
[2023-07-23] MEDS: PREGABALIN 100 MG CAPSULE 300 MG PO (21:27)
[2023-07-24] MEDS: ACETAMINOPHEN 500 MG TABLET 1000 MG PO ×3 (00:42→12:59)
[2023-07-24 03:19] VITALS: BP 121/57; PULSE 70; RESP 20; TEMP 36.3; O2SAT 96
[2023-07-24] MEDS: HYDROmorphone 2 MG TABLET PO ×5 (03:21→16:11)
[2023-07-24 06:18] LABS: Hemoglobin* 10.6 gm/dL (13.5-17.5); Immature Granulocytes Pct Auto 0.2 %; Lymphocytes Percent Auto 8.4 % (20-44); Mean Corpuscular HGB Conc 32 gm/dL (32-36); Mean Corpuscular Hemoglobin 33 pg (26-34); Mean Corpuscular Volume 103 fL (80-100); Neutrophils Percent Auto 82.4 % (42.0-72.0); Platelet Count* 222 K/uL (140-440); RDW Coefficient of Variation % 12.9 % (11.5-15.5); White Blood Count* 14.12 K/uL (4.50-11.00)
[2023-07-24 06:31] LABS: Slide Review Reflex No
[2023-07-24 06:34] LABS: Potassium* 4.7 mmol/L (3.6-5.1); Sodium* 136 mmol/L (135-149)
[2023-07-24 06:37] LABS: Creatinine* 0.9 mg/dL (0.5-1.5); Est. Creatinine Clearance* 64.26; Estimated Glomerular Filt Rate 92 ml/min
[2023-07-24 06:38] LABS: Blood Urea Nitrogen* 15 mg/dL (7-30)
--- NOTE | 2023-07-24 07:36 | PC.NURSE ---
Pt with uneventful noc. He is eating,drinking and voiding without problems. Pain controlled with Dilaudid po and Tylenol.
[2023-07-24 07:45] VITALS: BP 121/57; PULSE 70; RESP 20; TEMP 36.3; O2SAT 96
[2023-07-24] MEDS: ROSUVASTATIN CALCIUM 10 MG TABLET 5 MG PO (08:42)
[2023-07-24] MEDS: FAMOTIDINE 20 MG TABLET PO (08:43)
[2023-07-24] MEDS: SENNOSIDES 1 TAB TABLET 2 TAB PO (08:43)
[2023-07-24] MEDS: PREGABALIN 100 MG CAPSULE 300 MG PO (08:44)
[2023-07-24] MEDS: CITALOPRAM HYDROBROMIDE 20 MG TABLET 10 MG PO (08:44)
--- NOTE | 2023-07-24 10:06 | PM.ORPN ---
Subjective Subjective Date Seen: 07/24/23 Principal diagnosis: Status postop day 1, right total hip arthroplasty - anterior approach Interval history: Patient reports doing okay; but pain can be intense at times. No acute events over night. Pain managed with scheduled and PRN medications, ice. As on-call provider, was contacted last night as patient was requesting hydromorphone instead of oxycodone for pain relief. Hydromorphone is providing better relief for him. DVT prophylaxis: Rivaroxaban, SCDs, walking. Denies fevers, chills, aches, N/V, CP, SOB/SANDOVAL, or lightheadedness. Not passing flatus. His reports they typically try to wean patient off oral narcotics postoperatively within 3-5 days. He is on chronic tramadol for chronic pain. He will be off tramadol at this time until hydromorphone regimen is complete. They have also use Vistaril in the past for postoperative nausea. Patient deny nausea at this time Ortho Exam Narrative Exam Narrative: -Patient appears comfortable in bed; no apparent acute distress. Ice pack to the right hip, heat pad to his pelvis/groin region -Alert and oriented times 3 -Operative hip swollen; soft tissues supple; no obvious erythema. No significant ecchymosis Warmth appropriate -Surgical dressing clean, dry, intact; no obvious drainage, no erythematous streaking peripheral to the bandage. There is additional bandaging to the groin via Tegaderm due to skin irritation in this region that was present preoperative, and large abdominal pannus covering greater than 50% of the wound proximally -Bilateral calves soft and supple; no significant swelling, edema, tenderness, erythema, discoloration, warmth, or palpable cords -2+ DP/PT pulses, intact dermatomes and myotomes distally (5/5 strength). No numbness about the lateral femoral cutaneous nerve distribution. Const Vital Signs, click to edit/add: Vital Signs - 24 hr 07/23/23 10:45 07/23/23 10:50 07/23/23 10:55 Temperature 98.6 F Pulse Rate 89 80 74 Pulse Rate [Left Pulse Oximeter] Respiratory Rate 10 L 12 12 Blood Pressure 145/94 H 134/70 121/74 Blood Pressure [Right Arm] Pulse Oximetry 91 93 93 Oxygen Delivery Method Room Air Nasal Cannula Nasal Cannula Oxygen Flow Rate 4 4 04/15/24 11:00 07/23/23 11:05 07/23/23 11:10 Temperature Pulse Rate 82 76 75 Pulse Rate [Left Pulse Oximeter] Respiratory Rate 12 12 12 Blood Pressure 114/59 L 122/61 133/65 Blood Pressure [Right Arm] Pulse Oximetry 100 99 94 Oxygen Delivery Method Nasal Cannula Nasal Cannula Nasal Cannula Oxygen Flow Rate 4 4 4 07/23/23 11:15 07/23/23 11:20 07/23/23 11:25 Temperature 98.3 F Pulse Rate 77 77 74 Pulse Rate [Left Pulse Oximeter] Respiratory Rate 12 12 12 Blood Pressure 130/75 108/56 L 118/66 Blood Pressure [Right Arm] Pulse Oximetry 100 100 100 Oxygen Delivery Method Nasal Cannula Nasal Cannula Nasal Cannula Oxygen Flow Rate 4 4 4 07/23/23 11:30 07/23/23 11:45 07/23/23 12:00 Temperature 97 F L 97.1 F L Pulse Rate 82 78 79 Pulse Rate [Left Pulse Oximeter] Respiratory Rate 12 16 16 Blood Pressure 115/59 L 129/74 117/75 Blood Pressure [Right Arm] Pulse Oximetry 99 100 94 Oxygen Delivery Method Nasal Cannula Nasal Cannula Nasal Cannula Oxygen Flow Rate 4 1 1 07/23/23 12:15 07/23/23 12:30 07/23/23 12:45 Temperature 97.2 F L 97.0 F L Pulse Rate 79 76 80 Pulse Rate [Left Pulse Oximeter] Respiratory Rate 15 14 Blood Pressure 117/72 107/62 104/60 Blood Pressure [Right Arm] Pulse Oximetry 92 95 96 Oxygen Delivery Method Nasal Cannula Nasal Cannula Nasal Cannula Oxygen Flow Rate 1 2 2 07/23/23 13:15 07/23/23 13:30 07/23/23 14:15 Temperature 97.1 F L Pulse Rate 82 84 88 Pulse Rate [Left Pulse Oximeter] Respiratory Rate 18 Blood Pressure 111/61 117/76 138/66 Blood Pressure [Right Arm] Pulse Oximetry 96 96 Oxygen Delivery Method Nasal Cannula Nasal Cannula Room Air Oxygen Flow Rate 2 2 07/23/23 15:30 07/23/23 16:00 07/23/23 17:00 Temperature 97.1 F L Pulse Rate 100 86 78 Pulse Rate [Left Pulse Oximeter] Respiratory Rate 18 18 18 Blood Pressure 126/75 153/93 H 112/59 L Blood Pressure [Right Arm] Pulse Oximetry 94 94 95 Oxygen Delivery Method Room Air Room Air Room Air Oxygen Flow Rate 2 07/23/23 18:00 07/23/23 19:00 07/24/23 03:19 Temperature 97.8 F 97.3 F L Pulse Rate 85 Pulse Rate [Left Pulse Oximeter] 90 70 Respiratory Rate 18 18 20 Blood Pressure 132/62 Blood Pressure [Right Arm] 115/62 121/57 L Pulse Oximetry 94 94 96 Oxygen Delivery Method Room Air Room Air Nasal Cannula Oxygen Flow Rate 2.0 Assessment and Plan Assessment and plan (1) Status post right hip replacement: Problem details: - 07/23/23Serenity Status: Acute Plan - Complete 23 hour perioperative antibiotics. - PT/OT consult for education and assistance. - Social work consult for discharge planning - Prescribed analgesics as needed - hydromorphone is working at this time. We will not prescribe Vistaril due to concerns of urinary retention that could present in males. Once he has wean from hydromorphone, he can return to using tramadol as previously prescribed by PCP. - DVT prophylaxis: Rivaroxaban, and SCDs. He will transition to 81 mg aspirin by mouth twice daily after 5 days of rivaroxaban. - Anticipation is for discharge to home with spouse 07/24/2023 if the patient remains medically stable, pain is controlled, and they are safe with mobilization.
[2023-07-24] MEDS: RIVAROXABAN 10 MG TABLET PO (10:25)
--- NOTE | 2023-07-24 11:14 | P.IMPN_ITS ---
Progress Note: A&P Assessment and plan (1) Status post right hip replacement: Problem details: - 07/23/23Serenity - routine postop cares. He is doing well from a medical standpoint and has done well in PT and OT. There are no acute medical issues. He is on rivaroxaban for 5 days and then switching to twice a day aspirin for VTE prophylaxis. Status: Acute Subjective Time Seen by Provider: 08:05 Date Seen: 07/24/23 Interval history: Pierre complained of sharp pain in right hip and says he got a half dose of pain medicine at 3am. I spoke with his nurse who noted patient got 4mg at 3am and 2 mg at 6:30am. He did well in PT and OT today. Despite this, Pierre says he doesn't want to go home until the block has fully worn off and he is reassessed by PT and OT after the block has completely worn off. I noted that if he did not feel safe to go home, but has passed PT and OT, we could search for a self pay Extended AL or rehab. He declined. I spoke with Cole from [facility] over the phone. Cole is going to talk with the patient over the phone this morning. Exam Narrative: Exam Narrative: General: No acute distress. Awake, alert, oriented x3. No pallor. No jaundice. Oropharynx: Clear. Mucous membranes moist. Cardiovascular: Regular rate and rhythm. No murmurs, gallops, or rubs. Respiratory: Clear to auscultation bilaterally. No wheezes or crackles. Abdomen: Bowel sounds present. Soft, nondistended, nontender. Extremities: Right hip bandage is clean, dry, and intact. No pedal edema. Const: Vital Signs, click to edit/add: Vital Signs - 24 hr 07/23/23 11:15 07/23/23 11:20 07/23/23 11:25 Temperature 98.3 F Pulse Rate 77 77 74 Pulse Rate [Left P ulse Oximeter] Respiratory Rate 12 12 12 Blood Pressure 130/75 108/56 L 118/66 Blood Pressure [Ri ght Arm] Pulse Oximetry 100 100 100 Oxygen Delivery Me thod Nasal Cannula Nasal Cannula Nasal Cannula Oxygen Flow Rate 4 4 4 07/23/23 11:30 07/23/23 11:45 07/23/23 12:00 Temperature 97 F L 97.1 F L Pulse Rate 82 78 79 Pulse Rate [Left P ulse Oximeter] Respiratory Rate 12 16 16 Blood Pressure 115/59 L 129/74 117/75 Blood Pressure [Ri ght Arm] Pulse Oximetry 99 100 94 Oxygen Delivery Me thod Nasal Cannula Nasal Cannula Nasal Cannula Oxygen Flow Rate 4 1 1 07/23/23 12:15 07/23/23 12:30 07/23/23 12:45 Temperature 97.2 F L 97.0 F L Pulse Rate 79 76 80 Pulse Rate [Left P ulse Oximeter] Respiratory Rate 15 14 Blood Pressure 117/72 107/62 104/60 Blood Pressure [Ri ght Arm] Pulse Oximetry 92 95 96 Oxygen Delivery Me thod Nasal Cannula Nasal Cannula Nasal Cannula Oxygen Flow Rate 1 2 2 07/23/23 13:15 07/23/23 13:30 07/23/23 14:15 Temperature 97.1 F L Pulse Rate 82 84 88 Pulse Rate [Left P ulse Oximeter] Respiratory Rate 18 Blood Pressure 111/61 117/76 138/66 Blood Pressure [Ri ght Arm] Pulse Oximetry 96 96 Oxygen Delivery Me thod Nasal Cannula Nasal Cannula Room Air Oxygen Flow Rate 2 2 07/23/23 15:30 07/23/23 16:00 07/23/23 17:00 Temperature 97.1 F L Pulse Rate 100 86 78 Pulse Rate [Left P ulse Oximeter] Respiratory Rate 18 18 18 Blood Pressure 126/75 153/93 H 112/59 L Blood Pressure [Ri ght Arm] Pulse Oximetry 94 94 95 Oxygen Delivery Me thod Room Air Room Air Room Air Oxygen Flow Rate 2 07/23/23 18:00 07/23/23 19:00 07/24/23 03:19 Temperature 97.8 F 97.3 F L Pulse Rate 85 Pulse Rate [Left P ulse Oximeter] 90 70 Respiratory Rate 18 18 20 Blood Pressure 132/62 Blood Pressure [Ri ght Arm] 115/62 121/57 L Pulse Oximetry 94 94 96 Oxygen Delivery Me thod Room Air Room Air Nasal Cannula Oxygen Flow Rate 2.0 07/24/23 07:45 07/24/23 07:45 Temperature 97.3 F L Pulse Rate Pulse Rate [Left P ulse Oximeter] 70 70 Respiratory Rate 20 20 Blood Pressure Blood Pressure [Ri ght Arm] 121/57 L Pulse Oximetry 96 Oxygen Delivery Me thod Nasal Cannula Oxygen Flow Rate 2.0 Labs Labs: Laboratory Results - last 24 hr 07/24/23 05:57 WBC 14.12 H RBC 3.20 L Hgb 10.6 L Hct 33.0 L MCV 103 H MCH 33 MCHC 32 RDW Coeff of Rosalia 12.9 Plt Count 222 Neut % (Auto) 82.4 H Lymph % (Auto) 8.4 L Bonner % (Auto) 9.0 Eos % (Auto) 0.0 Baso % (Auto) 0.0 Neut # (Auto) 11.60 H Lymph # (Auto) 1.20 Bonner # (Auto) 1.30 H Eos # (Auto) 0.00 Baso # (Auto) 0.00 Abs Immat Gran (auto) 0.00 Imm/Tot Granulo (auto) 0.2 Sodium 136 Potassium 4.7 BUN 15 Creatinine 0.9 Estimated Creat Clear 64.26 Estimated GFR 92
[2023-07-24 12:06] VITALS: BP 148/64; PULSE 76; RESP 18; TEMP 36.2; O2SAT 94
[2023-07-24] MEDS: hydrOXYzine pamoate 25 MG CAPSULE PO (13:01)
[2023-07-24 15:15] VITALS: PULSE 71; RESP 18
[2023-07-24 16:15] VITALS: BP 150/74; PULSE 71; RESP 18; TEMP 36.1; O2SAT 92
--- NOTE | 2023-07-24 16:35 | PC.NURSE ---
Discharge. pt did not go home when discharge was done. and PA where updated pt kept change reason why to stay and not go home. DR. Lawrence and Cole HEAD talked to him and PT worked with him again @ 1400 and then pt said he would go home @ 1600 after pain meds. SL was d/c intact. dressing is C/D/I and active ice was applied. IS to 2500. he is up ab corrine in room per OT. he is using a walker, PT and OT worked with him. went over discharge packet with pt and ./ pt went over and signed personal belonging sheet,. he got a w/c ride to car with his walker.
== END 2023-07-24 16:40 | disposition home or self-care (01) ==
LOC: OR 06:13 → MEDSURG 06:18
PROVIDERS: PCP Family Medicine; Visit Provider Orthopaedic Surgery Sports Medicine
PROC: (CPT 27130; principal; 2023-07-23 07:30)
DX: M16.11 Unilateral primary osteoarthritis, right hip (principal); G89.18 Other acute postprocedural pain; G47.419 Narcolepsy without cataplexy; G62.9 Polyneuropathy, unspecified; K21.9 Gastro-esophageal reflux disease without esophagitis; F32.A Depression, unspecified; G47.33 Obstructive sleep apnea (adult) (pediatric); E78.5 Hyperlipidemia, unspecified
CPT/HCPCS: 27130; 01214; 36415; 64450; 73501; 76000; 76942; 82565; 84132; 84295; 84520; 85025; 86850; 86900; 86901; 97110; 97116; 97161; 97165; 97530; 99100; A9270; C1776; J0690; J1100; J1170; J1885; J2250; J2405; J2704; J2710; J2795; J3010; J3490; J7120

== ENCOUNTER 2023-10-01 09:45 | Outpatient (RCR) | payer OTHER, SELFPAY ==
--- NOTE | 2023-07-05 10:11 | PT.OPEX ---
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 Kennedy Subjective Subjective Patient is a 72 year old male who presents to physical therapy for his pre-op appointment prior to his right PIYUSH on 07/23/23. He states that his hip has been sore for a very long time. Currently, he does leg exercises, running 0.25 mile downhill, and walk a mile. He has went from 260 pounds to 225 pounds. Significant past medical history includes bilateral total knees, left char shoulder replacement, lumbar fusion. He plans to have the left hip replaced next. Pain Comments Today: 7/10 on a 0-10 pain scale with 10 = extreme pain At its worst: 10/10 At its best: 7/10 Date of Surgery (If applicable) 07/23/23 Objective Other/Pertinent Objective KNEE ROM Grossly tested WNL HIP ROM Left: Grossly tested WNL Right: Extension/Flexion: 0-80 Internal Rotation: 20 External Rotation:20 Abduction:30 LLE MMT: Hip flexion: R 4-/5 L 4-/5 Hip abduction: R 4-/5 L 4-/5 Hip extension: R 4/5 L 4/5 Knee flexion: R 5/5 L 5/5 Knee extension: R 5/5 L 5/5 TX: Reviewed/demonstrated on frequency to perform HEP post operatively including: long sitting quad set ankle pumps supine glute sets supine hamstring sets supine heel slide standing hip abd with UE support Extensive discussion and education on what to expect post operatively. Time was spent discussing home modifications, Assistive devices, pain control, fall prevention, hospital stay time line, and assist needed for activities post surgically. Pt questions were answered and demonstrated understanding. Assessment Assessment/Impression Pt is a 72 year old male who presents for his pre-op appointment prior to his right PIYUSH on 07/23/23. Patient also has notable objective findings including limited ROM, tenderness to palpation, and decreased strength which are also likely contributing to the problem. Patient is a good candidate for skilled therapy to target deficits described above. Skilled PT intervention is necessary for use of therapeutic exercise manual therapy, neuromuscular re- education, gait training, and therapeutic activity. Functional impairments include difficulty with: standing, walking, ADLS and exercising. See appropriate sections of PT eval for complete list of goals and POC. D/C plan and criteria is for pt to achieve the goals as listed below or until max rehab potential is met. Pt was agreeable with plan of care and goals established. Primary Functional Limitations standing walking exercising ADLs Plan of Care Rehabilitation Potential Good Physical Therapy Goals PIYUSH GOALS Within 10-12 weeks: 1) Pt will ambulate at least 15 minutes with single point cane, minimal antalgic gait for improved community mobility 2) Pt will be indep with HEP for [facility] management of pain/symptoms 3) Pt will improve hip AROM at least 0-90* for improved sit to stand transfers 4) Patient will ascend/descend at least 10 steps using single rail and reciprocal pattern to improve ease of mobility at home/community 5)Pt will ambulate at least 20 minutes without device, minimal antalgic gait to be able to return to all ADLs. Coordination/Communication With Referral Source Treatment Plan/Direct Interventions Gait Training,Neuromuscular Re -ed,Therapeutic Activities, Therapeutic Exercises Patient Will Be Discharged From Therapy Independently Progressing Evaluation Billing Untimed Code Treatment Minutes 30 Complexity Low Certification Information Physician Comment/Change : Physician NPI Number #
== END 2023-10-09 09:39 | disposition home or self-care (01) ==
PROVIDERS: PCP Family Medicine; Visit Provider Orthopaedic Surgery Sports Medicine
DX: M16.11 Unilateral primary osteoarthritis, right hip (principal); Z96.641 Presence of right artificial hip joint; Z51.89 Encounter for other specified aftercare
CPT/HCPCS: 97110; 97161

== ENCOUNTER 2023-10-02 07:30 | Outpatient (CLI) | payer OTHER, SELFPAY ==
--- OUTSIDE RECORDS SUMMARY | 2023-10-04 15:48 | XMS_ITS | Clinical Summary ---
Author Organization [facility] Address [place], [place] [address] Care Team Providers Care Local Company Truck Driver Name Role Phone Grace Dash MD Primary [...] Encounters Date Type Department Care Team Description 09/11/2023 Telephone [facility] [address] [place] [address] Paco Vela MD FYI 08/24/2023 Telephone [facility] [address] [place] [address] Paco Vela MD ORDER FOR US GUIDED INJECTION 07/10/2023 Telephone [facility] [address] [place] [address] Paco Vela MD Questions from Last 3 Months Immunizations Name Administration Dates Next Due COVID-19 vaccine (E[employer] NTech 30mcg/0.3mL) ROSA CONNOR 11/01/2021,04/28/2021,07/06/2020,2020 Influenza, High-dose Inactivated [...] Comments Blood Pressure 145/76 03/23/2023 7:34 AM OPERATIONS PLANT ATTENDANT Pulse 54 03/23/2023 7:34 AM OPERATIONS PLANT ATTENDANT Temperature 36.6 ??C (97.8 ??F) 11/24/2022 8:38 AM CD T Respiratory Rate 16 02/17/2019 11:3 0 AM OPERATIONS PLANT ATTENDANT Oxygen Saturation 96% 03/23/2023 7:34 AM OPERATIONS PLANT ATTENDANT Inhaled Oxygen Concentration - - Weight 109.7 kg (241 lb 12.8 oz) 03/23/2023 7:34 AM OPERATIONS PLANT ATTENDANT Height 165.1 cm (5' 5) 07/10/2022 7:04 AM CDT Body Mass Index 40.24 07/10/2022 7:04 AM CDT Plan of Treatment Health Maintenance Due Date Last Done Comments Depression screening for age 12+ 1964 Hepatitis C screening for ag e 18-79 1970 Lipids for age 45-75 1997 Zoster (shingles) series for age 50+ (1 of 2) 2002 Medicare Wellness for age 65+ 2017 COVID-19 vaccine series ( season) 2023 01/31/2023, 11/01/2021, 04/28/2021, Additional history exists BMI (ht and wt on same day) for age 18+ 07/11/2023 07/10/2022 Influenza for age 65+ 12/09/2023 01/31/2023 , 04/07/2022, 02/16/2021, Additional history exists Colonoscopy through age 75 02/17/2029 02/17/2019 Tetanus booster 01/31/2033 01/31/2023, 09/07, 04/05/2009 Pneumococcal series for age 65+ Completed 0, 07/10/2018 Tdap Completed 01/31/2023, 09/07, 04/05/2009 Procedures Procedure Name Priority Date/Time Associated Diagnosis Comments COLONOSCOPY 02/17/2019 9:37 AM OPERATIONS PLANT ATTENDANT from Last 3 Months or Most Recently Relevant to Health Maintenance Results * COLONOSCOPY (02/17/2019 9:37 AM OPERATIONS PLANT ATTENDANT) 02/17/2019 9:37 AM OPERATIONS PLANT ATTENDANT Narrative Transcriptions Enoc Hansen MD - 02/17/2019 10:42 AM CST Patient Name: Pierre Strickland Procedure Date: 02/17/2019 Gender: Male Date of : 1950 Admit Type: Ambulatory Procedure: Colonoscopy Proceduralist: Horace Hansen [facility] Indications/Pre-Op Diagnosis: Screening for colorectal malignantneoplasm Medications: [...] the bowel preparation was evaluated using theBBPS ([place] Bowel Preparation Scale) with scores of: Right [...] 1:13 PM 09/14/2018 4:26 PM Care Teams Local Company Truck Driver Relationship Specialty Start Date End Date Grace Dash MD [address] [place] [address] PCP - General Family Practice 08/31/22
== END 2023-10-02 07:31 | disposition home or self-care (01) ==
LOC: NFLDREF 10-04 15:46
PROVIDERS: PCP Family Medicine; Referring Provider Family Medicine; Visit Provider Family Medicine
DX: E78.5 Hyperlipidemia, unspecified (principal); R73.9 Hyperglycemia, unspecified; R73.03 Prediabetes; Z79.899 Other long term (current) drug therapy
CPT/HCPCS: 80053; 80061

== ENCOUNTER 2023-12-26 10:03 | Day surgery (SDC) | payer OTHER, SELFPAY ==
[2023-12-26] VITALS (21 sets, daily range): BP systolic 90–155; BP diastolic 54–85; PULSE 66–104; RESP 16–18; TEMP 36.3–38.1; O2SAT 86–100; BMI 38.1
--- OUTSIDE RECORDS SUMMARY | 2023-12-26 10:08 | XMS_ITS | Clinical Summary ---
Author Organization [facility] Address [place], [place] [address] Care Team Providers Care Blocker And Cutter Contact Lens Name Role Phone Grace Dash MD Primary [...] Date Diagnosed Date Hip pain, left 09/07/2022 Overview (03/24/2023): August 2022: Ultrasound guided left hip joint injection by Dr. Vela. 60% relief for groin pain and walking better. March 2023: Ultrasound guided left hip joint injection by Dr. Vela. Obesity, morbid 07/10/2022 Hip pain, right 05/06/2022 Overview (10/01/2022): April 2022: Right hip ultrasound guided intraarticular [...] 09/02/2018 Edema of both lower extremities 09/02/2018 Overview (09/02/2018): Chronic Chronic back pain 09/02/2018 Acute epididymitis 09/02/2018 Bilateral headaches Immunizations Name Administration Dates Next Due COVID-19 vaccine ([employer] 30mcg/0.3mL) PF, MDV 11/01/2021,04/28/2021,07/06/2020,2020 Influenza, High-dose Inactivated 12/24/2018,12/09 Influenza, High-dose [...] Comments Blood Pressure 145/76 03/23/2023 7:34 AM CANDY MAKER Pulse 54 03/23/2023 7:34 AM CANDY MAKER Temperature 36.6 ??C (97.8 ??F) 11/24/2022 8:38 AM CD T Respiratory Rate 16 02/17/2019 11:3 0 AM CANDY MAKER Oxygen Saturation 96% 03/23/2023 7:34 AM CANDY MAKER Inhaled Oxygen Concentration - - Weight 109.7 kg (241 lb 12.8 oz) 03/23/2023 7:34 AM CANDY MAKER Height 165.1 cm (5' 5) 07/10/2022 7:04 [...] same day) for age 18+ 07/11/2023 07/10/2022 COVID-19 vaccine series ( season) 2023 01/31/2023, 11/01/2021, 04/28/2021, Additional history exists Influenza for age 65+ 12/09/2023 01/31/2023 , 04/07/2022, 02/16/2021, Additional history exists Colonoscopy through age 75 02/17/2029 02/17/2019 Tetanus booster 01/31/2033 01/31/2023, 09/07, 04/05/2009 Pneumococcal series for age 65+ Completed 0, 07/10/2018 Tdap Completed 01/31/2023, 09/07, 04/05/2009 Procedures Procedure Name Priority Date/Time Associated Diagnosis Comments COLONOSCOPY 02/17/2019 9:37 AM CANDY MAKER from Last 3 Months or Most Recently Relevant to Health Maintenance Results * COLONOSCOPY (02/17/2019 9:37 AM CANDY MAKER) 02/17/2019 9:37 AM CANDY MAKER Narrative Transcriptions Enoc Hansen MD - 02/17/2019 10:42 AM CST Patient Name: Pierre Strickland Procedure Date: 02/17/2019 Gender: Male Date of : 1950 Admit Type: Ambulatory Procedure: Colonoscopy Proceduralist: Horace Hansen [facility] Indications/Pre-Op Diagnosis: Screening for colorectal malignantneoplasm [...] the bowel preparation was evaluated using theBBPS ([place] Bowel Preparation Scale) with scores of: Right [...] 1:13 PM 09/14/2018 4:26 PM Care Teams Blocker And Cutter Contact Lens Relationship Specialty Start Date End Date Grace Dash MD [address] [place] [id number] PCP - General Family Practice 08/31/22
[2023-12-26] MEDS: LACTATED RINGERS 1000 ML 1,000 ML 100 ML IV ×3 (10:20→14:00)
[2023-12-26] MEDS: SODIUM CHLORIDE 0.9 % (FLUSH) 10 ML SYRINGE IVF (10:20)
[2023-12-26] MEDS: ACETAMINOPHEN 500 MG TABLET 1000 MG PO ×3 (10:20→23:56)
[2023-12-26] MEDS: fentaNYL 100 MCG/2 ML inj IVP (10:56)
[2023-12-26] MEDS: MIDAZOLAM HCL 1 MG/ML inj IVP (10:56)
--- NOTE | 2023-12-26 11:09 | SUR.PREOP ---
TIME?OUT:?1056 PT/RN/MDA?VERIFICATION?OF?SURGICAL?SITE,?PROCEDURE,?AND?CONSENT OBTAINED?PRIOR?TO?INVASIVE?PROCEDURE.
--- NOTE | 2023-12-26 11:25 | W.PM.NB ---
Nerve Block Nerve Block Time Seen by Provider: 11:04 Date Seen: 12/26/23 Type of block requested by surgeon for post-operative analgesia: GEORGE/LFCN Time out performed: Yes Verification of patient name: Yes Verification of date of : Yes Site marking: site marked Name of person performing procedure: Jimmy Continuous monitoring Was continuous monitoring of O2 sat, B/P, monitor and storage bin tender, recorded every 15 minutes?: Yes Procedure Checklist: sterile prep, needles and gloves Ultrasound guided. Images saved: Yes Medications given in 5ml increments after negative aspiration: Ropivicaine %: 0.5 mL: 30 Needle gauge: 20 Decadron (mg): 10 Precedex (mcg): 25 Patient tolerated procedure well: Yes Additional comments: Needle noted below psoas tendon needle noted adjacent to LFCN Block Charges Block Charge (with Pro Fee): Other Periph Nerve Block Use of Ultrasound Machine for Block: Yes- US Guidance/pain block
--- NOTE | 2023-12-26 11:26 | W.ANESCHARGE ---
Anesthesia Charges Start Date/Time Anesthesia Start Date: 12/26/23 Anesthesia Start Time: 11:10 Stop Date/Time Anesthesia Stop Date: 12/26/23 Anesthesia Stop Time: 15:13 Summary Extremes of Age - Over 70 or under 1: MDA
[2023-12-26] MEDS: CEFAZOLIN 2 GM in 0.9 % SODIUM CHLORIDE Mini-bag 100 ML IVPB ×2 (11:27→18:13)
--- NOTE | 2023-12-26 11:36 | W.PM.H&PU ---
History & Physical Update History & Physical Update H&P Reviewed and patient assessed: No changes noted
--- NOTE | 2023-12-26 11:40 | CRLHL7_ITS ---
For Patients: As a result of the Cures Act, medical imaging exams and procedure reports are released immediately into your electronic medical record. You may view this report before your referring provider. If you have questions, please contact your health care provider. Indication: S/P TOTAL HIP ARTHROPLASTY Technique: AP hip centered pelvis and lateral view left hip Findings/Impression: Hardware from a left total hip arthroplasty is in satisfactory position. Bone alignment is normal. No sign of acute fracture. Postop changes are within normal limits. Dictated by Ford Clayton MD @ 12/27/2023 9:02:21 AM (Electronically Signed)
[2023-12-26] MEDS: TRANEXAMIC ACID 100 MG/ML INJ 1000 MG IV (11:41)
--- NOTE | 2023-12-26 11:57 | CRLHL7_ITS ---
For Patients: As a result of the Cures Act, medical imaging exams and procedure reports are released immediately into your electronic medical record. You may view this report before your referring provider. If you have questions, please contact your health care provider. Indication: Hip replacement surgery Technique: AP hip fluoroscopic images. Fluoroscopy time 46.3 seconds. Findings/Impression: Hardware from a left total hip arthroplasty is in satisfactory position. Dictated by Ford Clayton MD @ 12/27/2023 9:00:17 AM (Electronically Signed)
--- NOTE | 2023-12-26 14:02 | PM.ORPRC ---
Procedure Note Date of procedure: 12/26/23 Procedure: PREOPERATIVE DIAGNOSIS: 1. Left hip osteoarthritis, severe, primary 2. Obesity POSTOPERATIVE DIAGNOSIS: 1. Left hip osteoarthritis, severe, primary 2. Obesity PROCEDURE: 1. Left total hip arthroplasty-anterior approach - of note, there was 33% added time and difficulty for this case due to patient's body habitus and obesity and density of tissue. 2. [id number] - intraoperative fluoroscopy up to 1 hour. SURGEON: Lv Kennedy MD. DIRECTOR SPECIALTY: Cole Adair PA-C;Gifty BATES - Of note, a skilled university administrative assistant was critical for this case to aid in patient positioning, tissue retraction, limb manipulation/positioning, dislocation/relocation, patient safety, and closure. ANESTHESIA: General endotracheal anesthetic EBL: 1300 mL IMPLANTS: DePuy J&J uncemented total hip [place] cup size 50, hole eliminator, +0 neutral liner Actis stem, high offset, size 5 +5 mm ceramic 32mm head. COMPLICATIONS: None evident INDICATIONS: The patient is a pleasant 73-year-old male who has experienced severe left hip pain and difficulty bearing weight. Workup included x-rays which revealed severe osteoarthrosis in the hip. Given the deformity, the dysfunction, and the pain, as well as the failure of nonoperative management, recommendation was made for surgery. FINDINGS: Full thickness cartilage loss Left femoral head and acetabulum. Large effusion of the joint. DESCRIPTION OF PROCEDURE: Following a thorough discussion of risks, benefits, and alternatives consent was obtained and the left hip was marked. The patient was brought to the operating room and placed supine on the operating table. Induction of anesthesia was undertaken. 2 g IV Ancef and 1 g tranexamic acid was administered within 1 hr of incision preoperatively. Proper time-out was performed identifying proper patient, site, procedure. The operative extremity was prepped and draped in the appropriate sterile fashion using ChloraPrep after the patient was positioned on the [place] table with head in neutral alignment and all bony prominences well padded. C-arm fluoroscopic imaging was utilized to confirm proper pelvis rotation and position, and to get true AP films of both the contralateral left, and the affected left hip. This is for comparison. A longitudinal incision was made starting approximately 1 cm distal to the ASIS, and 3-4 cm lateral. The incision was extended distally aiming toward the lateral border the patella. Sharp incision through skin and bovie cautery through the subcutaneous tissue allowed identification of the TFL fascia. This was sharply divided, and the fascia bluntly released from the muscle fibers as we dissected medial. Upon coming to the medial border, we were able to retract the TFL laterally, and penetrated the deeper fascia and identify the crossing circumflex vessels. These were ligated/cauterized. The rectus was elevated from the capsule, and retractors placed laterally and medially along the femoral neck to help with visualization of the capsule. We then performed an inverted T capsulotomy. The capsule was tagged for later repair. Retractors were placed inside the capsule. The femoral neck was visualized after releasing medially down to the lesser trochanter, along the saddle laterally, and up onto the acetabulum. The femoral neck cut was made in line with our preoperative templating. The head was removed in a single piece, and sized. We turned our attention to acetabular preparation. Initially, the labrum was resected from around the perimeter, the pulvinar was excised, allowing us to visualize the false wall. We started the reaming with a 43 mm reamer. This was medialized down to the true wall. We then enlarged our reamers sequentially up to one size less than the selected cup size. We trialed at the same size and found it to have an excellent fit. The selected cup was then opened, inserted, and impacted in line with the goal of 40-45? of abduction, and 20-25? of anteversion. This was confirmed on C-arm fluoroscopic imaging to be in the appropriate/goal position. Once the cup was placed we placed a hole eliminator and a liner consistent with preop planning. Attention was turned to the femoral preparation. The limb was extended, externally rotated, and adducted. The posteromedial capsule was released, as retractors were placed allowing excellent access to the proximal femur. Initially a box lining machine operator was followed by canal finder followed by various broaches. We broached sequentially up to size noted above, found it to have excellent rotational control, and trialing various heads and necks, revealed that appropriate neck offset, and the above noted head size provided the greatest stability, and orthodoxy of length, and offset. C-arm fluoroscopic imaging confirmed position of the stem, as well as leg lengths, which were compared with the pre procedure all fluoroscopic images. Trial implants were removed, the real femoral stem inserted, as was the ceramic head. After reducing, the leg was placed through range of motion and stability was confirmed anterior, posterior, and lateral. A 3 min Betadine soak was then performed, and thorough irrigation with normal saline followed. Closure of the capsule was performed with #1 PDS. Bleeding was confirmed to be controlled at this stage, and the TFL fascia was closed with #0 strata fix. Subcutaneous, and subcuticular closure was performed with 2-0 Vicryl and 4-0 Monocryl, respectively. Dressings were applied, and the patient was awoken from anesthesia and transferred the PACU in stable condition. A skilled university administrative assistant was critical for this case to aid in patient positioning, tissue retraction, proximal femur exposure, limb manipulation/positioning, dislocation/relocation, patient safety, and closure. PLAN: 1. Weight bear as tolerated operative extremity. 2. 23 hr perioperative antibiotics. 3. Ice. 4. PT/OT consults for ambulation assistance/mobility education. 5. Social work consult for discharge planning. 6. DVT prophylaxis with at SCDs and Xarelto x5 days followed by aspirin for a total of 1 month..
[2023-12-26 14:29] LABS: Hemoglobin* 10.8 gm/dL (13.5-17.5)
--- NOTE | 2023-12-26 15:22 | P.ANES_ITS ---
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
[2023-12-26] MEDS: HYDROmorphone 0.5 mg/0.5 ml inj IVP (15:25)
[2023-12-26] MEDS: LACTATED RINGERS 1000 ML 1,000 ML 35 ML IV ×2 (15:35→15:43)
[2023-12-26] MEDS: fentaNYL 100 MCG/2 ML inj 50 MCG IVP (15:38)
[2023-12-26] MEDS: LACTATED RINGERS 1000 ML 1,000 ML 75 ML IV (16:27)
--- NOTE | 2023-12-26 18:15 | P.IMCN_ITS ---
Date of Consult Patient: [facility] Patient Consult date: 12/26/23 Requesting Physician: Orthopedics Primary Care Provider: Grace Dash MD Consult Narrative Reason for consult: Post-op care of narcolepsy, anxiety, gout, GERD, HLD, LE edema Narrative: Pierre Strickland is a 73 year old man with advanced coxarthrosis who undergoes an elective left total hip arthroplasty on 12/26/2023, [facility], Dr. Kennedy. Estimated blood loss 1300 mL. Postoperatively he slow to awake. Indicates pain is adequately managed at this time. Able to eat and drink. Review of Systems Status of ROS: Reports: 6 or more systems reviewed and unremarkable except as noted in History and below Narrative: Generally active except for the pain. Hopes to be more active postoperatively. 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 Loves his and loves his granddaughter who is blind from and has a pituitary disorder. Does not use tobacco or alcohol or any other street or recreational drug. Tells me he has multiple steps to climb in his home. [facility] Medical History Steatosis of liver ?K76.0 - Fatty (change of) liver, not elsewhere classified (ICD-10) Intertrigo ?L30.4 - Erythema intertrigo (ICD-10) TORY (obstructive sleep apnea) (09/02/18) ?G47.33 - Obstructive sleep apnea (adult) (pediatric) (ICD-10) Narcolepsy (09/02/18) ?G47.419 - Narcolepsy without cataplexy (ICD-10) Gout (09/02/18) ?M10.9 - Gout, unspecified (ICD-10) GERD (gastroesophageal reflux disease) (09/02/18) ?K21.9 - Gastro-esophageal reflux disease without esophagitis (ICD-10) Fever of unknown origin (09/15/18) ?R50.9 - Fever, unspecified (ICD-10) Depression (09/02/18) ?F32.A - Depression, unspecified (ICD-10) BPH (benign prostatic hyperplasia) (09/02/18) ?N40.0 - Benign prostatic hyperplasia without lower urinary tract symptoms (ICD-10) Obesity, morbid (07/10/22) ?E66.01 - Morbid (severe) obesity due to excess calories (ICD-10) Macrocytic anemia (09/02/18) ?D53.9 - Nutritional anemia, unspecified (ICD-10) Hyperlipidemia (09/02/18) ?E78.5 - Hyperlipidemia, unspecified (ICD-10) Edema of both lower extremities (09/02/18) ?R60.0 - Localized edema (ICD-10) Chronic back pain (09/02/18) ?M54.9 - Dorsalgia, unspecified (ICD-10) ?G89.29 - Other chronic pain (ICD-10) Bilateral headaches ?R51.9 - Headache, unspecified (ICD-10) Acute epididymitis (09/02/18) ?N45.1 - Epididymitis (ICD-10) Osteoarthritis of right hip ?M16.11 - Unilateral primary osteoarthritis, right hip (ICD-10) Osteoarthritis of left hip ?M16.12 - Unilateral primary osteoarthritis, left hip (ICD-10) Osteoarthritis of right foot ?M19.071 - Primary osteoarthritis, right ankle and foot (ICD-10) Hx MRSA infection ?Z86.14 - Personal history of Methicillin resistant Staphylococcus aureus infection (ICD-10) Melanoma (03/2022) ?C43.9 - Malignant melanoma of skin, unspecified (ICD-10) Ulcer of right lower leg ?L97.919 - Non-pressure chronic ulcer of unspecified part of right lower leg with unspecified severity (ICD-10) Peripheral edema ?R60.9 - Edema, unspecified (ICD-10) Osteoarthritis ?M19.90 - Unspecified osteoarthritis, unspecified site (ICD-10) Obstructive sleep apnea syndrome ?G47.33 - Obstructive sleep apnea (adult) (pediatric) (ICD-10) Neuropathy ?G62.9 - Polyneuropathy, unspecified (ICD-10) Memory impairment (2015) ?R41.3 - Other amnesia (ICD-10) rn long term care current use of diuretic ?Z79.899 - Other assistant terminal manager (current) drug therapy (ICD-10) Incomplete right bundle branch block (RBBB) (2020) ?I45.10 - Unspecified right bundle-branch block (ICD-10) Hypercalcemia (10/2019) ?E83.52 - Hypercalcemia (ICD-10) History of Clostridioides difficile infection (12/26/18) ?Z86.19 - Personal history of other infectious and parasitic diseases (ICD- 10) Hemorrhagic diathesis ?D69.9 - Hemorrhagic condition, unspecified (ICD-10) Epididymitis ?N45.1 - Epididymitis (ICD-10) Depression ?F32.A - Depression, unspecified (ICD-10) Constipation ?K59.00 - Constipation, unspecified (ICD-10) Chronic pain ?G89.29 - Other chronic pain (ICD-10) Chronic daily headache (2017) ?R51.9 - Headache, unspecified (ICD-10) Basal cell carcinoma (BCC) (2014) ?C44.91 - Basal cell carcinoma of skin, unspecified (ICD-10) Adrenal nodule ?E27.8 - Other specified disorders of adrenal gland (ICD-10) Surgical History Status post right hip replacement (07/23/23) ?Z96.641 - Presence of right artificial hip joint (ICD-10) History of total right hip replacement (07/23/23) ?Z96.641 - Presence of right artificial hip joint (ICD-10) History of temporal artery biopsy (09/13/18) ?Z98.890 - Other specified postprocedural states (ICD-10) History of Mohs micrographic surgery for skin cancer ?Z85.828 - Personal history of other malignant neoplasm of skin (ICD-10) ?Z98.890 - Other specified postprocedural states (ICD-10) History of arthroscopy of right knee ?Z98.890 - Other specified postprocedural states (ICD-10) History of tonsillectomy ?Z90.89 - Acquired absence of other organs (ICD-10) S/P left knee arthroscopy ?Z98.890 - Other specified postprocedural states (ICD-10) S/P ORIF (open reduction internal fixation) fracture ?Z98.890 - Other specified postprocedural states (ICD-10) ?Z87.81 - Personal history of (healed) traumatic fracture (ICD-10) History of hemiarthroplasty of left shoulder (10/22/14) ?Z96.612 - Presence of left artificial shoulder joint (ICD-10) Status post epidural steroid injection (06/2022) ?Z92.241 - Personal history of systemic steroid therapy (ICD-10) History of lumbosacral spine surgery (03/10/15) ?Z98.890 - Other specified postprocedural states (ICD-10) History of bilateral knee replacement (2008) ?Z96.653 - Presence of artificial knee joint, bilateral (ICD-10) History of arthroscopy of both shoulders (2010) ?Z98.890 - Other specified postprocedural states (ICD-10) History of arthroplasty of both wrists (2010) ?Z96.631 - Presence of right artificial wrist joint (ICD-10) ?Z96.632 - Presence of left artificial wrist joint (ICD-10) Family History Sister Breast cancer, Onset Age: 50 Father Stroke, Onset Age: 72 Mother Diabetes Other Narcolepsy Social History Narrative: , 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, 3 adult 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 does not drink alcohol exercise involving walking- 2M dog walking 6/week non-smoker What is your current living situation?: I presently have a place to live Problems where you live: no known problems In the past 12 months, utilities in danger of being shut off: no In past 12 months, lack of transportation kept you from medical appts, meetings, work, or getting things needed for daily living: no In the past 12 mos, have been you worried that your food would run out before you had money to buy more?: never true In the past 12 mos, the food you bought just didn't last and you didn't have money to buy more?: never true Highest level of school completed/degree received: don't know Smoking Status: Never smoker Do you use any of these nicotine containing products: None Second hand tobacco smoke exposure: No How often do you have a drink containing alcohol: never How often do you have six or more drinks on one occasion: Never AUDIT-C Alcohol total score: 0 Non-prescribed substance use: denies use Caffeine: Yes How often does anyone, including family, friends and others, physically hurt you : never How often does anyone, including family, friends and others, insult or talk down to you: never How often does anyone, including family, friends and others, threaten you with harm: never How often does anyone, including family, friends and others, scream or curse at you: never Little interest or pleasure in doing things: not at all Feeling down, depressed, or hopeless: not at all service: No Meds Home Medications and Allergies Home Medications ?Medication ?Instructions ?Recorded ?Confirmed ?Type ascorbic acid (vitamin C) 1,000 mg 1 g PO DAILY 10/26/21 12/26/23 History tablet multivitamin 1 tab PO DAILY 10/26/21 12/26/23 History famotidine 20 mg tablet 20 mg PO DAILY 07/23/23 12/26/23 History rosuvastatin 5 mg tablet 5 mg PO DAILY 07/23/23 12/26/23 History tamsulosin 0.4 mg capsule 0.4 mg PO HS 07/23/23 12/26/23 History vitamin B complex 1 tab PO DAILY 07/23/23 12/26/23 History Allergies Allergy/AdvReac Type Severity Reaction Status Date / Time bupropion Allergy Intermediate Agitated Verified 12/26/23 10:36 fluorouracil [From Efudex] Allergy Intermediate Hives Verified 12/26/23 10:36 gabapentin Allergy Intermediate Agitated Verified 12/26/23 10:36 lorazepam Allergy Intermediate Verified 12/26/23 10:36 meperidine [From Demerol] Allergy Rash Verified 12/26/23 10:36 codeine AdvReac Severe Hallucinati Verified 12/26/23 10:36 ng oxycodone AdvReac Intermediate Agitated Verified 12/26/23 18:22 adhesive tape AdvReac Mild Verified 12/26/23 11:54 doxycycline AdvReac Rash Verified 12/26/23 10:36 Exam Narrative: Exam Narrative: I examine the patient in his hospital room postoperatively. Initially he is asleep. I speak softly with his who is sitting in a chair next to him. He awakens. He immediately engages in the conversation. Vision and hearing are adequate. Alert and oriented x3. Cooperative and friendly. Articulate. Neck is supple with midline trachea. Lungs are clear to auscultation without wheezing, rhonchi, or rales. Heart tones with regular rhythm, normal S1-S2. Abdomen with active bowel sounds, soft, nontender. No rebound or guarding. Moves all 4 extremities. Able to eat and drink without coughing or sputtering. No focal motor neurologic deficits. Const: Vital Signs, click to edit/add: Vital Signs - 24 hr 12/26/23 10:29 12/26/23 10:58 12/26/23 15:10 Temperature 97.9 F 97.3 F L Pulse Rate 66 69 83 Respiratory Rate 18 18 18 Blood Pressure 132/85 146/75 H 126/76 Pulse Oximetry 98 98 97 Oxygen Delivery Me thod Room Air Room Air Room Air Oxygen Flow Rate 12/26/23 15:15 12/26/23 15:20 12/26/23 15:25 Temperature Pulse Rate 86 84 81 Respiratory Rate 18 16 16 Blood Pressure 130/68 136/76 119/71 Pulse Oximetry 100 98 97 Oxygen Delivery Wv thod Room Air Room Air Room Air Oxygen Flow Rate 12/26/23 15:30 12/26/23 15:35 12/26/23 15:40 Temperature Pulse Rate 84 84 84 Respiratory Rate 16 16 16 Blood Pressure 130/65 127/76 90/62 Pulse Oximetry 95 97 94 Oxygen Delivery Wv thod Room Air Room Air Room Air Oxygen Flow Rate 12/26/23 15:45 12/26/23 16:00 12/26/23 16:15 Temperature 98.1 F 97.6 F 98.1 F Pulse Rate 85 86 81 Respiratory Rate 16 16 16 Blood Pressure 100/84 140/72 H 113/60 Pulse Oximetry 94 95 86 L Oxygen Delivery Wv thod Room Air Room Air Room Air Oxygen Flow Rate 12/26/23 16:16 12/26/23 16:30 12/26/23 16:45 Temperature 97.6 F 98.1 F 98 F Pulse Rate 86 80 82 Respiratory Rate 16 16 16 Blood Pressure 140/72 H 126/70 127/71 Pulse Oximetry 95 99 99 Oxygen Delivery Wv thod Room Air Nasal Cannula Nasal Cannula Oxygen Flow Rate 2 1 12/26/23 17:00 12/26/23 17:30 Temperature 97.8 F Pulse Rate 87 86 Respiratory Rate 16 16 Blood Pressure 122/66 139/74 Pulse Oximetry 96 92 Oxygen Delivery Wv thod Room Air Room Air Oxygen Flow Rate Labs Labs: Short CBC 12/26/23 Range/Units Unknown Hgb 10.8 L (13.5-17.5) gm/dL Assessment and Plan Assessment and plan (1) Status post left hip replacement: Status: Acute (2) Postoperative anemia due to acute blood loss: Status: Acute (3) Narcolepsy: Problem comment: Atypical, uses methylphenidate Status: Chronic (4) Benign prostatic hyperplasia: Problem comment: Uses Flomax. Status: Chronic (5) Dyslipidemia: Problem comment: Uses rosuvastatin Status: Chronic (6) Gastroesophageal reflux disease: Problem comment: Much improved with famotidine Status: Chronic (7) Gout: Status: Chronic (8) Peripheral edema: Problem comment: Uses diuretics,venous insufficiency, Much improved with use of compression stoc Status: Chronic (9) Obstructive sleep apnea syndrome: Problem comment: Untreated not usesing CPAP, could not get used to it Status: Chronic (10) Neuropathy: Problem comment: Due to back problems, uses Lyrica Status: Chronic (11) Chronic pain: Problem comment: Due to osteoarthritis, uses tramadol, nonsteroidals cause excessive bruising Status: Chronic (12) Depression: Status: Chronic (13) Long-term use of high-risk medication: Problem comment: Tramadol Ritalin diuretic Status: Acute Plan 1. Reviewed impression and recommendations with patient and . 2. Resume his medications. 3. Agree with perioperative antibiotic prophylaxis. 4. Agree with postoperative venous thromboembolism prophylaxis with rivaroxaban x5 days followed by aspirin times 30 days. 5. Completed hospitalist portion of discharge summary. 6. Will monitor closely for possible ongoing bleeding. Repeat hemoglobin tonight and again tomorrow morning. 7. Given that he has benign prostatic hyperplasia, monitor for possible urinary retention postop. 8. Agree with PT and OT support. 9. Patient and are agreeable with above stated plans and recommendations. Total Time Spent Total Time Spent: 60 minute
[2023-12-26] MEDS: HYDROmorphone 2 MG TABLET PO ×2 (18:16→20:52)
[2023-12-26 19:13] LABS: Hemoglobin* 10.8 gm/dL (13.5-17.5)
[2023-12-26] MEDS: TAMSULOSIN HCL 0.4 MG CAPSULE PO (20:51)
[2023-12-26] MEDS: allopurinoL 300 MG TABLET PO (20:51)
[2023-12-26] MEDS: SENNOSIDES 1 TAB TABLET 2 TAB PO (20:52)
[2023-12-26] MEDS: PREGABALIN 100 MG CAPSULE 300 MG PO (20:53)
--- NOTE | 2023-12-26 23:29 | PC.NURSE ---
End of shift [id number]: Pt has been A&O, afebrile and VSS with exception to elevated BP as pain increased. Reported 10/10 left hip pain & PRN PO Dilaudid given @ 1814 and 2049. Pt has been able to doze off and fall asleep since then. Pt?s is at bedside and will be spending the night. Left anterior hip dressing is C/D/I. Ice has been on/off this shift. PO intake has been adequate & pt was able to void 300 mL yaakov colored urine so PIV in right wrist is SL and C/D/I. Pt has required 1- 2.5L supplemental O2 via NC d/t hypoxia while asleep. Reports he does have a h/o TORY but unable to tolerate CPAP d/t claustrophobia. Bilateral plexi pulses in place & IS level @ 2500. Pt has needed frequent education on RLL positioning in bed post-op; he tends to rotate his knee inward causing rotation of his hip joint. ?
[2023-12-27] MEDS: HYDROmorphone 2 MG TABLET PO ×2 (01:12→07:39)
[2023-12-27] MEDS: CEFAZOLIN 2 GM in 0.9 % SODIUM CHLORIDE Mini-bag 100 ML IVPB (02:23)
[2023-12-27] MEDS: SODIUM CHLORIDE 0.9 % (FLUSH) 10 ML SYRINGE IVF (02:24)
[2023-12-27 02:25] VITALS: BP 124/60; PULSE 95; RESP 16; TEMP 37; O2SAT 95
[2023-12-27] MEDS: ACETAMINOPHEN 500 MG TABLET 1000 MG PO (06:55)
[2023-12-27 07:08] LABS: Hematocrit 30.8 % (37.0-53.0); Hemoglobin* 9.7 gm/dL (13.5-17.5); Immature Granulocytes Pct Auto 0.1 %; Lymphocytes Percent Auto 7.5 % (20-44); Mean Corpuscular HGB Conc 32 gm/dL (32-36); Mean Corpuscular Hemoglobin 31 pg (26-34); Mean Corpuscular Volume 99 fL (80-100); Monocytes Percent Auto 7.8 % (0.0-11.0); Neutrophils Percent Auto 84.6 % (42.0-72.0); Platelet Count* 187 K/uL (140-440); RDW Coefficient of Variation % 14.1 % (11.5-15.5); White Blood Count* 12.03 K/uL (4.50-11.00)
[2023-12-27 07:20] LABS: Slide Review Reflex No
[2023-12-27 07:25] LABS: Potassium* 4.1 mmol/L (3.6-5.1); Sodium* 139 mmol/L (135-149)
[2023-12-27 07:28] LABS: Blood Urea Nitrogen* 12 mg/dL (7-30); Creatinine* 0.8 mg/dL (0.5-1.5); Est. Creatinine Clearance* 63.35; Estimated Glomerular Filt Rate 95 ml/min
[2023-12-27 07:34] VITALS: BP 127/67; PULSE 79; RESP 18; TEMP 37.7; O2SAT 96
--- NOTE | 2023-12-27 07:56 | PC.NURSE ---
end of shift note: pt pleasant and cooperative with cares. pt - norma at bedside and appears loving. dressing to left hip c/d/i. pt rates hip pain 5-8/10 with relief from scheduled and prn pain reliever (see emar). active ice in place. up with a2/w. hx of shikha -spo2 95% on 2.5l nc during hs.
--- NOTE | 2023-12-27 08:14 | P.ORPN_ITS ---
Subjective Subjective Time Seen by Provider: 07:00 Date Seen: 12/27/23 Principal diagnosis: Day 1 s/p left PIYUSH Interval history: Pierre is doing okay overall and resting comfortably in his bed. Pierre c/o 7 out of 10 left hip pain, worse with movement. Reports he struggled last night ambulating to the restroom. Patient has not yet been seen by therapy, but he appears nervous to ambulate. Denies: postop chest pain, SOB, fever, chills, num bness/tingling distally. Denies postoperative bowel movement, but admits to flatulence. present during our visit and will be assisting Pierre at home. Ortho Exam Narrative Exam Narrative: Incision/Dressing: Dressing appears clean and dry. No drainage present. Mepilex intact. Secondary dressing also present with small 1 cm area of drainage. Left hip appears moderately swollen but supple with no obvious erythema, fluctuance or excessive warmth. Ecchymosis present around surgical site. No erythematous streaking. Warmth around the wound is appropriate. Ice is being utilized as needed. CMS: Intact distally with 2+ Dorsalis pedis and Posterior Tibial pulses. 5/5 motor strength dorsal and plantar flexion. Confirmed sensation distally. Intact straight leg raise. Calf: Bilateral calves are supple, with no swelling, pain, tenderness, erythema, discoloration or coolness to the touch. Constitutional: Patient is alert and oriented x3. Patient is in no acute distress and converses without labored breathing. Patient is able to make decisions and demonstrates good insight. Patient is pleasant and cooperative. Affect is full range and appropriate for the circumstances. Const Vital Signs, click to edit/add: Vital Signs - 24 hr 12/26/23 10:29 12/26/23 10:58 12/26/23 15:10 Temperature 97.9 F 97.3 F L Pulse Rate 66 69 83 Pulse Rate [Pulse Oximeter] Respiratory Rate 18 18 18 Blood Pressure 132/85 146/75 H 126/76 Blood Pressure [Right Arm] Pulse Oximetry 98 98 97 Oxygen Delivery Method Room Air Room Air Room Air Oxygen Flow Rate 12/26/23 15:15 12/26/23 15:20 12/26/23 15:25 Temperature Pulse Rate 86 84 81 Pulse Rate [Pulse Oximeter] Respiratory Rate 18 16 16 Blood Pressure 130/68 136/76 119/71 Blood Pressure [Right Arm] Pulse Oximetry 100 98 97 Oxygen Delivery Method Room Air Room Air Room Air Oxygen Flow Rate 12/26/23 15:30 12/26/23 15:35 12/26/23 15:40 Temperature Pulse Rate 84 84 84 Pulse Rate [Pulse Oximeter] Respiratory Rate 16 16 16 Blood Pressure 130/65 127/76 90/62 Blood Pressure [Right Arm] Pulse Oximetry 95 97 94 Oxygen Delivery Method Room Air Room Air Room Air Oxygen Flow Rate 12/26/23 15:45 12/26/23 16:00 12/26/23 16:15 Temperature 98.1 F 97.6 F 98.1 F Pulse Rate 85 86 81 Pulse Rate [Pulse Oximeter] Respiratory Rate 16 16 16 Blood Pressure 100/84 140/72 H 113/60 Blood Pressure [Right Arm] Pulse Oximetry 94 95 86 L Oxygen Delivery Method Room Air Room Air Room Air Oxygen Flow Rate 12/26/23 16:16 12/26/23 16:30 12/26/23 16:45 Temperature 97.6 F 98.1 F 98 F Pulse Rate 86 80 82 Pulse Rate [Pulse Oximeter] Respiratory Rate 16 16 16 Blood Pressure 140/72 H 126/70 127/71 Blood Pressure [Right Arm] Pulse Oximetry 95 99 99 Oxygen Delivery Method Room Air Nasal Cannula Nasal Cannula Oxygen Flow Rate 2 1 12/26/23 17:00 12/26/23 17:30 12/26/23 18:00 Temperature 97.8 F Pulse Rate 87 86 96 Pulse Rate [Pulse Oximeter] Respiratory Rate 16 16 16 Blood Pressure 122/66 139/74 155/72 H Blood Pressure [Right Arm] Pulse Oximetry 96 92 94 Oxygen Delivery Method Room Air Room Air Room Air Oxygen Flow Rate 12/26/23 19:07 12/26/23 22:27 12/26/23 23:50 Temperature 98.8 F 98.8 F Pulse Rate 104 H 97 Pulse Rate [Pulse Oximeter] 92 Respiratory Rate 18 18 18 Blood Pressure 127/54 L 115/58 L Blood Pressure [Right Arm] Pulse Oximetry 95 95 Oxygen Delivery Method Room Air Nasal Cannula Oxygen Flow Rate 1 12/26/23 23:50 12/26/23 23:50 12/27/23 02:25 Temperature 100.6 F H 98.6 F Pulse Rate Pulse Rate [Pulse Oximeter] 92 95 Respiratory Rate 18 18 16 Blood Pressure Blood Pressure [Right Arm] 111/69 124/60 Pulse Oximetry 95 95 95 Oxygen Delivery Method Nasal Cannula Nasal Cannula Nasal Cannula Oxygen Flow Rate 2.5 2.5 2.5 12/27/23 07:34 12/27/23 07:34 Temperature 99.9 F H Pulse Rate Pulse Rate [Pulse Oximeter] 79 Respiratory Rate 18 18 Blood Pressure Blood Pressure [Right Arm] 127/67 Pulse Oximetry 96 96 Oxygen Delivery Method Room Air Room Air Oxygen Flow Rate Assessment and Plan Assessment and plan (1) Status post left hip replacement: Problem details: DOS: 12/26/23, Dr. Kennedy. Status: Acute Assessment and Plan: - Complete 23 hour perioperative antibiotics. - PT/OT consults for education and assistance. - Weight bear as tolerated with a walker for assistance. - Prescribed analgesics as needed. Patient is content with current narcotic medications. Minimize narcotic pain medication use; wean off and discontinue as soon as possible. - DVT prophylaxis: Xarelto x 5 days followed by aspirin 81 mg BID x 25 days. Also, frequent ambulation and ankle pumps when sedentary. - Social consult for discharge planning. - Discharge date unknown at this time. We will wait and see how Pierre does with PT and OT later this morning. - Return to clinic in 1 week for a wound check with Cole Adair PA-C. Mepilex dressing will be removed at this appointment. Remove sooner if dressing becomes saturated. - Return to clinic in [address] Kennedy. - Phone Orthopedics with any questions or concerns. [phone]
[2023-12-27] MEDS: RIVAROXABAN 10 MG TABLET PO (08:31)
[2023-12-27] MEDS: PREGABALIN 100 MG CAPSULE 300 MG PO (08:31)
[2023-12-27] MEDS: SENNOSIDES 1 TAB TABLET 2 TAB PO (08:31)
[2023-12-27] MEDS: ASCORBIC ACID 500 MG TABLET 1000 MG PO (08:31)
[2023-12-27] MEDS: CITALOPRAM HYDROBROMIDE 20 MG TABLET 10 MG PO (08:31)
[2023-12-27] MEDS: FUROSEMIDE 40 MG TABLET PO (08:32)
[2023-12-27] MEDS: FAMOTIDINE 20 MG TABLET PO (08:32)
== END 2023-12-27 11:38 | disposition home or self-care (01) ==
LOC: OR 10:06 → MEDSURG 10:08
PROVIDERS: Internal Medicine; PCP Family Medicine; Visit Provider Orthopaedic Surgery Sports Medicine
PROC: (CPT 27130; principal; 2023-12-26 09:45)
DX: M16.12 Unilateral primary osteoarthritis, left hip (principal); G89.18 Other acute postprocedural pain; E66.01 Morbid (severe) obesity due to excess calories; Z68.38 Body mass index [BMI] 38.0-38.9, adult; G47.419 Narcolepsy without cataplexy; F41.9 Anxiety disorder, unspecified; M10.9 Gout, unspecified; K21.9 Gastro-esophageal reflux disease without esophagitis; E78.5 Hyperlipidemia, unspecified; K76.0 Fatty (change of) liver, not elsewhere classified; G47.33 Obstructive sleep apnea (adult) (pediatric); N40.0 Benign prostatic hyperplasia without lower urinary tract symptoms; R60.0 Localized edema; G62.9 Polyneuropathy, unspecified; F32.A Depression, unspecified
CPT/HCPCS: 27130; 01214; 36415; 64450; 73501; 76942; 82565; 84132; 84295; 84520; 85018; 85025; 86850; 86900; 86901; 97110; 97116; 97161; 97165; 97530; 97535; 99100; A9270; C1776; J0330; J0690; J1100; J1170; J2250; J2704; J2795; J3010; J3490; J7120

== ENCOUNTER 2024-02-27 13:00 | Outpatient (RCR) | payer OTHER, SELFPAY ==
--- NOTE | 2023-10-22 08:08 | PT.OPEX ---
PT [facility] Outpatient Eval PT [facility] Outpatient Eval Start: 10/09/23 12:26 Freq: Status: Active Protocol: Document 10/22/23 07:02 MLS (Rec: 10/22/23 08:07 MLS [id number]) E-signed By Nani Skaggs DPT Physical Therapy Outpatient Evaluation Insurance Information Recert Due Date 01/19/24 Insurance Name Medicare B,Other; See Comments Insurance Information/Comments [employer] Medical Diagnosis Z96.642 presence of left artificial hip joint M16.12 unilateral primary OA s/p left PIYUSH on 10/29/23 Treating Diagnosis Left hip strengthening Referring MD Dr. Benton Subjective Preferred Name Pierre Singh Patient is a 72 year old male who presents to physical therapy for his pre-op appointment prior to left hip PIYUSH on 10/29/23. He has had left hip pain for several years. Significant past medical history includes right PIYUSH, bilateral knee replacements, left shoulder char, skin cancer, daily headaches and arthritis. Patient would like to have less hip pain through physical therapy sessions. 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 Precautions Weight Bearing Status Full Weight Bearing Objective Other/Pertinent Objective KNEE ROM Grossly tested WNL HIP ROM Right: Grossly tested WNL Left: Flexion: 95 Internal Rotation: 15 External Rotation: 20 Abduction: 20 LLE MMT: Hip flexion: R 4+/5 L 4/5 Hip abduction: R 4+/5 L 4/5 Hip extension: R 4/5 L 4/5 Knee flexion: R 5/5 L 5/5 Knee extension: R 5/5 L 5/5 Reviewed/demonstrated on frequency to perform HEP post operatively including: long sitting quad set ankle pumps supine glute sets supine heel slide LAQ Sit to stand standing hip abd with UE support Standing calf raise Extensive discussion and education on what to expect post operatively. Time was spent discussing home modifications, Assistive devices, pain control, fall prevention, hospital stay time line, and assist needed for activities post surgically. Pt questions were answered and demonstrated understanding. Assessment Assessment/Impression Pt is a 72 year old male who presents for his pre-op appointment prior to left PIYUSH on 10/29/23. Patient also has notable objective findings including limited ROM, tenderness to palpation, and decreased strength which are also likely contributing to the problem. Patient is a good candidate for skilled therapy to target deficits described above. Skilled PT intervention is necessary for use of therapeutic exercise manual therapy, neuromuscular re- education, gait training, and therapeutic activity. Functional impairments include difficulty with: standing, walking, exercising, and ADLS. See appropriate sections of PT eval for complete list of goals and POC. D/C plan and criteria is for pt to achieve the goals as listed below or until max rehab potential is met. Pt was agreeable with plan of care and goals established. Primary Functional Limitations standing walking exercising ADLs Plan of Care Rehabilitation Potential Good Physical Therapy Goals STG: (prior to surgery) !. Pt will demonstrate independence in performance of home exercise program with the use of video and/or handouts in order to optimize functional mobility and reduce risk for re-injury. LTG: (post surgery) within 10- 12 weeks 1) Pt will be indep with HEP for terminal manager management of pain/symptoms 2) Pt will improve hip AROM at least 0-90* for improved sit to stand transfers 3) Patient will ascend/descend at least 14 steps using single rail and reciprocal pattern to improve ease of mobility at home/community to get to basement. 4) Patient will ambulate at least 15 minutes with single point cane, minimal antalgic gait for improved community mobility Coordination/Communication With Referral Source Treatment Plan/Direct Interventions Gait Training,Manual Therapy, Neuromuscular Re-ed, Therapeutic Activities, Therapeutic Exercises Patient Will Be Discharged From Therapy Independently Progressing Evaluation Billing Untimed Code Treatment Minutes 30 Complexity Low Certification Information Initial Certification Date 10/22/23 Provider Signature Required Yes Provider Signature Shows Agreement With POC & Medical Necessity Physician NPI Number Write NPI# Here Physician Comment/Change : Physician Signature & Date Requested Please Sign/Date Here
== END 2024-03-25 13:05 | disposition home or self-care (01) ==
PROVIDERS: PCP Family Medicine; Visit Provider Orthopaedic Surgery Sports Medicine
DX: M16.12 Unilateral primary osteoarthritis, left hip (principal); Z96.642 Presence of left artificial hip joint; Z51.89 Encounter for other specified aftercare
CPT/HCPCS: 97110; 97161; 97164

== ENCOUNTER 2024-04-21 07:30 | Outpatient (CLI) | payer OTHER, SELFPAY | END 2024-04-21 07:31 | disposition home or self-care (01) | LOC: NFLDREF 04-28 04:48 | PROVIDERS: PCP Family Medicine; Referring Provider Family Medicine; Visit Provider Family Medicine | DX: R73.03 Prediabetes (principal); E78.5 Hyperlipidemia, unspecified; N40.0 Benign prostatic hyperplasia without lower urinary tract symptoms; Z12.5 Encounter for screening for malignant neoplasm of prostate | CPT/HCPCS: 80053; 80061; G0103 ==

== ENCOUNTER 2024-10-17 07:05 | Outpatient (CLI) | payer OTHER, SELFPAY ==
--- NOTE | 2024-10-17 07:15 | CRLHL7_ITS ---
For Patients: As a result of the Century Cures Act, medical imaging exams and procedure reports are released immediately into your electronic medical record. You may view this report before your referring provider. If you have questions, please contact your health care provider. INDICATION: Low back pain. COMPARISON: 01/10/2024. TECHNIQUE: Sagittal T1, T2, and STIR sequences. Axial T1 and T2 weighted sequences. FINDINGS: Normal vertebral body alignment. No fractures. No vertebral body loss of height. Compared to the previous radiograph, stable postop changes of diskectomy interbody fusion L5-S1. Posterior fusion hardware. No suspicious osseous lesions. Normal conus terminates at L1. T11-12: Disc degeneration posterior disc bulge. No narrowing of spinal canal. No neural foraminal narrowing. T12-L1 L1-2 L2-3: No spinal canal or neural foraminal narrowing. L3-4: Disc degeneration and posterior disc bulge. Mild narrowing of spinal canal. Mild right and [id number] left neural foraminal narrowing. Mild facet arthropathy. L4-5: Disc degeneration and posterior disc bulge. Mild narrowing of spinal canal. Mild narrowing of bilateral foramina. L5-S1: No narrowing of spinal canal. No impingement of the traversing S1 nerve roots. Mild narrowing of bilateral foramina. Degenerative changes of the SI joints. IMPRESSION: 1. Normal alignment. No fractures 2. Stable postop changes L5-S1. 3. At L3-4, mild narrowing of the spinal canal. Mild right and [id number] left neural foraminal narrowing. 4. At L4-5, mild narrowing of the spinal canal and bilateral neural foramina 5. At L5-S1, mild narrowing of the bilateral neural foramina Dictated by Saravanan Moore MD @ 10/18/2024 5:11:47 PM (Electronically Signed)
== END 2024-10-17 07:06 | disposition home or self-care (01) ==
LOC: MRI 07:06
PROVIDERS: PCP Family Medicine; Visit Provider Physical Medicine & Rehabilitation Pain Medicine
DX: M54.50 Low back pain, unspecified (principal); M51.26 Other intervertebral disc displacement, lumbar region; M51.27 Other intervertebral disc displacement, lumbosacral region; M47.816 Spondylosis without myelopathy or radiculopathy, lumbar region; Z98.1 Arthrodesis status
CPT/HCPCS: 72148

== ENCOUNTER 2024-10-17 08:22 | Outpatient (CLI) | payer OTHER, SELFPAY | END 2024-10-17 08:23 | disposition home or self-care (01) | LOC: NFLDREF 10-21 14:18 | PROVIDERS: PCP Family Medicine; Referring Provider Family Medicine; Visit Provider Family Medicine | DX: R73.03 Prediabetes (principal); Z79.899 Other long term (current) drug therapy | CPT/HCPCS: 80053 ==

== ENCOUNTER 2024-11-04 13:16 | Outpatient (CLI) | payer OTHER, SELFPAY ==
[2024-11-04 11:17] LABS: Erythrocyte SedimentationRate* 12 mm/hr (2-15)
[2024-11-06 08:02] LABS: Antinuclear Antibody HEp-2,IgG <1:80 (<1:80)
== END 2024-11-04 23:59 | disposition home or self-care (01) ==
LOC: NPINS 11-27 14:33
PROVIDERS: PCP Family Medicine; Visit Provider Nurse Practitioner
DX: G44.221 Chronic tension-type headache, intractable (principal)
CPT/HCPCS: 83516; 85651; 86038; 86039; 86140; 86200; 86431

== ENCOUNTER 2024-11-13 08:08 | Outpatient (CLI) | payer OTHER, SELFPAY ==
--- NOTE | 2024-11-13 08:15 | CRLHL7_ITS ---
For Patients: As a result of the Century Cures Act, medical imaging exams and procedure reports are released immediately into your electronic medical record. You may view this report before your referring provider. If you have questions, please contact your health care provider. INDICATION: Cervical dystonia. TECHNIQUE: Sagittal T1, sagittal and axial T2 and sagittal STIR images. FINDINGS: Multilevel cervical spondylosis. Mild degenerative retrolisthesis at C4-5 C5-6 and C6-7. These findings are superimposed on congenitally narrowed cervical spinal canal. No stenosis of the foramen magnum level C1 or C2 levels. At C2-3 no disc herniation or acquired stenosis of the spinal canal or neural foramen. At C3-4 shallow broad-based central disc protrusion with. Thickening of the dorsal ligamentum flavum. Moderate central spinal canal stenosis with slight deformity of the ventral cord surface. Mild bilateral neural foraminal narrowing. At C4-5 degenerative disc space narrowing. Broad-based central posterior disc protrusion thickening of the dorsal ligamentum flavum. Severe narrowing of the spinal canal with compressive deformity of the cord normal cord signal. Moderate bilateral neural foraminal stenosis with potential impingement of exiting C5 nerve roots. At C5-6 degenerative disc space narrowing. Broad-based posterior disc protrusion and osteophyte complex some thickening of the dorsal ligamentum flavum moderate central spinal canal stenosis without spinal cord compression. Moderate bilateral neural foraminal narrowing with potential irritation of exiting C6 nerve roots. At C6-7 degenerative disc space narrowing. Circumferential disc bulging and marginal spur formation without stenosis of the spinal canal. Mild bilateral foraminal narrowing. At C7-T1 no disc herniation central or lateral stenosis. IMPRESSION: 1. Multilevel cervical spondylosis superimposed on congenitally narrowed cervical spinal canal. 2. At C3-4 mild central canal stenosis due to broad-based disc protrusion. Mild bilateral foraminal narrowing. 3. At C4-5 moderate to severe central canal stenosis with ventral cord compressive deformity. This due to a broad-based disc protrusion and dorsal ligament thickening. Bilateral foraminal stenosis with probable impingement of the C5 nerve roots. 4. At C5-6 moderate central canal stenosis and bilateral foraminal narrowing. Potential irritation of the exiting C6 nerve roots. 5. At C6-7 mild bilateral foraminal narrowing. 6. Normal cord signal. Dictated by Raymond Zambrano MD @ 11/14/2024 11:24:31 AM (Electronically Signed)
== END 2024-11-13 08:09 | disposition home or self-care (01) ==
LOC: MRI 08:08
PROVIDERS: PCP Family Medicine; Visit Provider Nurse Practitioner
DX: G24.3 Spasmodic torticollis (principal); M47.892 Other spondylosis, cervical region; M48.02 Spinal stenosis, cervical region; M50.223 Other cervical disc displacement at C6-C7 level
CPT/HCPCS: 72141